=== PATIENT | female | born 1975 | race Caucasian/White ===

== ENCOUNTER 2019-11-09 11:36 | Inpatient (IN) | payer OTHER ==
[2019-11-09 12:14] LABS: Basophils # (A) 0.1 k/uL (0-0.2); Basophils % (A) 2 %; Eosinophils # (A) 0.1 k/uL (0-0.7); Eosinophils % (A) 1 %; HCT 43.3 % (34.0-46.0); HGB 14.2 gm/dL (11.4-16.0); Lymphocytes % (A) 17 %; MCH 28.5 pg (25.0-35.0); MCHC 32.7 g/dL (31.0-37.0); MCV 87.2 fL (80.0-100.0); Mean Platelet Volume 6.9; Monocytes # (A) 0.4 k/uL (0-1.0); Monocytes % (A) 8 %; Neutrophils % (A) 71 %; Platelet Count 264 k/uL (150-450); RBC 4.97 m/uL (3.80-5.40); RDW 13.2 % (11.5-15.5); WBC 5.6 k/uL (3.8-10.6)
[2019-11-09] MEDS ORDERED: NITROGLYCERIN SL TABS 0.4 MG TAB SUBLINGUAL STA (12:15)
[2019-11-09] MEDS ORDERED: ASPIRIN 81 MG PO STA (12:20)
[2019-11-09 12:23] LABS: ALT 13 U/L (4-34); AST 21 U/L (14-36); African American GFR (CKD) >90 (>60 ml/min/1.73 sqM); Albumin 4.2 g/dL (3.5-5.0); Alkaline Phosphatase 54 U/L (38-126); Anion Gap 6 mmol/L; Blood Urea Nitrogen 11 mg/dL (7-17); Calcium 9.3 mg/dL (8.4-10.2); Carbon Dioxide 29 mmol/L (22-30); Chloride 103 mmol/L (98-107); Glucose 86 mg/dL (74-99); Non-African American GFR(CKD) >90 (>60 ml/min/1.73 sqM); Potassium 4.1 mmol/L (3.5-5.1); Sodium 138 mmol/L (137-145); Total Bilirubin 0.4 mg/dL (0.2-1.3); Total Protein 6.9 g/dL (6.3-8.2)
--- NOTE | 2019-11-09 12:29 | ED ---
Chest Pain HPI <Mark Miranda - Last Filed: 11/09/19 13:23> - General Source: patient Mode of arrival: wheelchair Limitations: no limitations <Katelyn Lozano - Last Filed: 11/09/19 16:36> - General Chief Complaint: Chest Pain Stated Complaint: chest pain Time Seen by Provider: 11/09/19 12:15 - History of Present Illness Initial Comments: 44-year-old female who denies smoking history diabetes high blood pressure high cholesterol she states she does have history of CAD with the family. 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 Patient denies any ripping or tearing chest pain sharp chest pain or pain with deep inspiration. Denies shortness of breath admits to diaphoresis. Patient denies any leg swelling fever or flulike symptoms. Patient denies any nausea or vomiting. Patient denies history of clotting disorders, leg swelling hemoptysis recent travel recent surgeries active cancer. Upon arrival patient appears diaphoretic. (Katelyn Lozano) - Related Data Home Medications Medication Instructions Recorded Confirmed Sertraline [Zoloft] 100 mg PO DAILY 05/19/16 11/09/19 Fluticasone Nasal [place] [Flonase 1 spray EA NOSTRIL BID PRN 09/16/16 11/09/19 Nasal [place]] ARIPiprazole [Abilify] 10 mg PO HS 11/09/19 11/09/19 Albuterol Inhaler [Ventolin Hfa 1 - 2 puff INHALATION RT-Q6H PRN 11/09/19 11/09/19 Inhaler] Levothyroxine Sodium [Synthroid] 50 mcg PO DAILY 11/09/19 11/09/19 buPROPion HCL [Wellbutrin XL] 300 mg PO DAILY 11/09/19 11/09/19 buPROPion [Wellbutrin] 75 mg PO DAILY@1200 11/09/19 11/09/19 traZODone HCL 50 mg PO HS 11/09/19 11/09/19 Allergies Allergy/AdvReac Type Severity Reaction Status Date / Time aspirin Allergy Unknown Verified 11/09/19 14:23 Childhood promethazine HCl Allergy Unknown Verified 11/09/19 14:23 [From Phenergan] Childhood tramadol Allergy Unknown Verified 11/09/19 14:23 Review of Systems ROS Other: All systems not noted in ROS Statement are negative. <Mark Miranda - Last Filed: 11/09/19 13:23> ROS Other: All systems not noted in ROS Statement are negative. <Katelyn Lozano - Last Filed: 11/09/19 16:36> ROS Statement: Those systems with pertinent positive or pertinent negative responses have been documented in the HPI. EKG Findings - EKG Comments: EKG Findings:: Ventricular rate 76 bpm, ME interval 156 ms, QRS laceration 80 ms, QT/QTc is 4/[address] elevation or depression nonspecific T-wave. EKG 1234. Ventricular rate 70 bpm, ME interval 152 ms, QRS duration 86 ms, QT/QTC 396/451 ms. This is normal sinus, no st elevation or depression. EKG 1154 <Katelyn Lozano - Last Filed: 11/09/19 16:36> Past Medical History Past Medical History: Asthma, GERD/Reflux Additional Past Medical History / Comment(s): constipation, abd pain, spinal stenosis, sciatica, History of Any Multi-Drug Resistant Organisms: None Reported Additional Past Surgical History / Comment(s): laproscopy for molar Past Anesthesia/Blood Transfusion Reactions: No Reported Reaction Past Psychological History: Depression Smoking Status: Former smoker Past Alcohol Use History: None Reported Past Drug Use History: None Reported <Katelyn Lozano - Last Filed: 11/09/19 16:36> General Exam Limitations: no limitations <Katelyn Lozano - Last Filed: 11/09/19 16:36> Course <Mark Miranda - Last Filed: 11/09/19 13:23> Vital Signs 11/09/19 11/09/19 11/09/19 11:45 12:36 12:50 Temperature 97.5 F L Pulse Rate 93 84 80 Respiratory 16 19 19 Rate Blood Pressure 139/78 121/79 118/81 O2 Sat by Pulse 99 100 99 Oximetry 11/09/19 11/09/19 11/09/19 13:41 14:46 16:15 Temperature 98.3 F Pulse Rate 84 81 77 Respiratory 19 18 18 Rate Blood Pressure 112/83 121/87 131/77 O2 Sat by Pulse 100 99 99 Oximetry - Reevaluation(s) Reevaluation #1: 11/09/19 13:23 Patient 34 presenting with chest pain, found to have elevated troponin. Case is discussed with the admitting physician Dr. Hatfield as well as the fast food worker Dr. Nelson. Patient chest pain-free at the time my evaluation. She is initiated on heparin, nitroglycerin, given aspirin emergency department. (Mark Miranda) Chest Pain MDM <Katelyn Lozano - Last Filed: 11/09/19 16:36> - MDM 44yo female presented for chest pain. 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 Denies any other forms of allergic reaction to Aspirin. Patient was provided 324mg chewable after evaluation. Troponin returned elevated. There is no ST elevation or depression. Concern for an STEMI. Time are within normal limits. Chest x- rayin. Patient's blood pressure vital signs remained stable in the emergency department. At this time will admit patient for cardiac catheterization and further evaluation by cardiology. Patient is agreeable to this Plan and admission as well as anticoagulation therapy patient was started on the intensity heparin after patient was evaluated by attending provider Dr. Miranda was agreeable to care plan at this time. 35 minutes of critical care were spent with patient including reevaluation, speaking with admitting providers, discussing updates, repeat EKG interpretations. (Katelyn Lozano) Disposition <Mark Miranda - Last Filed: 11/09/19 13:23> Is patient prescribed a controlled substance at d/c from ED?: No Time of Disposition: 14:02 Decision to Admit Reason: Admit from EC Decision Date: 11/09/19 Decision Time: 14:02 <Katelyn Lozano - Last Filed: 11/09/19 16:36> Clinical Impression: NSTEMI (non-ST elevated myocardial infarction), Chest pressure Disposition: ADMITTED IP TO THIS HOSP Condition: Serious
[2019-11-09 12:34] LABS: INR 0.9 (<1.2); Partial Thromboplastin Time 22.9 sec (22.0-30.0); Prothrombin Time 9.6 sec (9.0-12.0)
--- NOTE | 2019-11-09 12:51 | XR ---
EXAMINATION TYPE: XR chest 2V DATE OF EXAM: 11/09/2019 COMPARISON: NONE TECHNIQUE: PA and lateral views submitted. HISTORY: Pain FINDINGS: The lungs are clear and there is no pneumothorax, pleural effusion, or focal pneumonia. Mild hyperi nflation. No overt failure. IMPRESSION: 1. No acute process. Mild hyperinflation correlate for asthma or COPD.
[2019-11-09] MEDS ORDERED: NITROGLYCERIN OINT 1 INCH/GM PACKET TOPICAL STA (13:06)
[2019-11-09] MEDS ORDERED: HEPARIN SODIUM,PORCINE 5,000 UNIT/ML 1 ML VIAL IV PRN (13:07)
[2019-11-09] MEDS ORDERED: HEPARIN SODIUM,PORCINE 5,000 UNIT/ML 1 ML VIAL IV ONE (13:07)
[2019-11-09] MEDS ORDERED: HEPARIN SOD,PORK IN 0.45% NACL 25,000 UNIT in 0.45% NACL 1 250ML.BAG IV SCH (13:15)
[2019-11-09] MEDS ORDERED: NITROGLYCERIN SL TABS 0.4 MG TAB SUBLINGUAL PRN (13:58)
[2019-11-09 17:47] LABS: Cholesterol 267 mg/dL (<200); HDL Cholesterol 62 mg/dL (40-60); LDL Cholesterol,Calculated 172 mg/dL (0-99); Triglycerides 164 mg/dL (<150)
[2019-11-09 19:25] LABS: INR 0.9 (<1.2); Partial Thromboplastin Time 58.7 sec (22.0-30.0); Prothrombin Time 9.7 sec (9.0-12.0)
[2019-11-09] MEDS: METOPROLOL SUCCINATE (ER) 25 MG TAB.ER.24H PO SCH (21:01)
--- NOTE | 2019-11-09 21:58 | CONS ---
CONSULTATION CHIEF COMPLAINT: Chest pain. Akanksha is a 44-year-old lady with no significant past medical history who presented to hospital complaining of chest pain. She describes it as a precordial chest discomfort that radiated to her jaw. It is mild to moderate intensity at rest, and her first set of troponin had come back elevated. At the time of my evaluation she appears comfortable at rest. EKG did not reveal ischemic changes. Her clinical presentation is consistent with acute cyr-AX-scdbbdw-elevation NC. The patient has a history of dyslipidemia. On this admission the TSH is high, free T4 is low. This needs further evaluation and treatment. PAST MEDICAL HISTORY: Negative for hypertension, diabetes. MEDICATIONS: Medications at home include Ventolin, Abilify, Synthroid, Zoloft, Wellbutrin and trazodone. ALLERGIES: PHENERGAN, TRAMADOL AND ASPIRIN. FAMILY HISTORY: Negative for premature coronary artery disease. SOCIAL HISTORY: Negative for current smoking, EtOH abuse or drug abuse. REVIEW OF SYSTEMS: HEENT is unremarkable. CARDIAC: As described above. RESPIRATORY: Negative. GI: Negative. GENITOURINARY: Negative. ALLERGY: Negative. IMMUNOLOGY: Negative. SKIN: Negative. MUSCULOSKELETAL: Negative. ENDOCRINE: Negative. DERMATOLOGY: Negative. CONSTITUTIONAL: Negative. ONCOLOGICAL: Negative. CRUSHER SUPERVISOR: Negative. Rest of the system review is not relevant. PHYSICAL EXAMINATION: Heart rate is 77 beats per minute. Blood pressure is 130/77, respiratory rate is 18. Oxygen saturation is 99% on 2 L. There is no jugular venous distention. Carotid upstroke is normal. There is no bruit. Chest exam reveals good air entry bilaterally. Heart exam reveals first and second heart sounds. No gallop. No murmur. No rub. Abdomen is soft, nontender. Examination of extremities did not reveal any edema. Peripheral pulses are felt. EKG shows sinus rhythm without significant ST-T wave changes. ASSESSMENT: Acute zpo-HP-myiexqj-elevation myocardial infarction. PLAN: Patient is free of symptoms at the moment. Patient is pain-free. She is on IV heparin, nitroglycerin paste, aspirin. I am going to start her on beta blockers and schedule her for a catheterization tomorrow morning. MMODL / IJN: [id number] /
[2019-11-09] MEDS ORDERED: NITROGLYCERIN-D5W PMX 50 MG in DEXTROSE/WATER 1 250ML.BAG IV SCH (22:00)
[2019-11-09] MEDS ORDERED: HYDROmorphone 0.5 MG/0.5 ML SYRINGE IVP STA (22:52)
[2019-11-10] MEDS: ACETAMINOPHEN TAB 325 MG TAB PO PRN ×2 (00:52→14:30)
[2019-11-10 01:18] LABS: Basophils % (A) 1 %; Eosinophils # (A) 0.1 k/uL (0-0.7); Eosinophils % (A) 1 %; HCT 37.4 % (34.0-46.0); HGB 12.4 gm/dL (11.4-16.0); Lymphocytes # (A) 1.7 k/uL (1.0-4.8); Lymphocytes % (A) 37 %; MCH 28.8 pg (25.0-35.0); MCHC 33.1 g/dL (31.0-37.0); Monocytes # (A) 0.4 k/uL (0-1.0); Monocytes % (A) 9 %; Neutrophils # (A) 2.3 k/uL (1.3-7.7); Neutrophils % (A) 49 %; Platelet Count 264 k/uL (150-450); RDW 13.2 % (11.5-15.5); WBC 4.6 k/uL (3.8-10.6)
[2019-11-10 06:29] LABS: Basophils % (A) 0 %; Eosinophils # (A) 0.1 k/uL (0-0.7); Eosinophils % (A) 2 %; HCT 36.9 % (34.0-46.0); HGB 12.3 gm/dL (11.4-16.0); Lymphocytes # (A) 1.6 k/uL (1.0-4.8); Lymphocytes % (A) 33 %; MCH 29.1 pg (25.0-35.0); MCHC 33.3 g/dL (31.0-37.0); MCV 87.2 fL (80.0-100.0); Mean Platelet Volume 7.1; Monocytes # (A) 0.5 k/uL (0-1.0); Monocytes % (A) 9 %; Neutrophils # (A) 2.5 k/uL (1.3-7.7); Neutrophils % (A) 53 %; Platelet Count 260 k/uL (150-450); RBC 4.23 m/uL (3.80-5.40); RDW 13.1 % (11.5-15.5); WBC 4.8 k/uL (3.8-10.6)
[2019-11-10 07:04] LABS: Cholesterol 234 mg/dL (<200); HDL Cholesterol 57 mg/dL (40-60); LDL Cholesterol,Calculated 153 mg/dL (0-99); Triglycerides 121 mg/dL (<150)
[2019-11-10] MEDS ORDERED: ASPIRIN 325 MG TAB PO STA (07:23)
[2019-11-10] MEDS ORDERED: NITROGLYCERIN SL TABS 0.4 MG TAB SUBLINGUAL PRN ×2 (07:23→10:50)
[2019-11-10] MEDS ORDERED: ALPRAZolam 0.25 MG TAB PO PRN (07:23)
[2019-11-10] MEDS ORDERED: ATORVASTATIN 80 MG TAB PO STA (07:23)
[2019-11-10] MEDS ORDERED: ALPRAZolam 0.5 MG TAB PO PRN (07:23)
[2019-11-10] MEDS ORDERED: SODIUM CHLORIDE 0.9% 1,000 ML in EMPTY BAG 1 BAG IV ONE (07:23)
--- NOTE | 2019-11-10 07:48 | PN ---
PROGRESS NOTE Akanksha is a.m. 44-year-old lady who came into hospital with chest pain and ruled in for myocardial infarction. Her first set of troponin was elevated at 0.045 seconds. The second set came back as 2.1 and third set as 2.4. Her LDL cholesterol is 172. The total cholesterol is 267. Patient is currently on IV heparin, nitroglycerin paste and is symptom-free. PHYSICAL EXAM: Comfortable at rest. Vital signs are stable. Chest exam reveals good air entry bilaterally. Heart exam reveals first and second heart sounds. No gallop. No murmur. No rub. Abdomen is soft, nontender. Exam of extremities did not reveal any edema. Peripheral pulses are felt. LABS: Show a hemoglobin of 12.3, platelet count is 260. Creatinine is 0.76. Troponins are elevated. ASSESSMENT: Acute non ST-segment elevation myocardial infarction. PLAN: Patient will undergo cardiac catheterization with a view to performing angioplasty this morning. She had been explained of risks, benefits. MMODL / IJN: [id number] /
[2019-11-10] MEDS: METOPROLOL SUCCINATE (ER) 25 MG TAB.ER.24H PO SCH (08:07)
[2019-11-10] MEDS ORDERED: FUROSEMIDE 10 MG/ML 2 ML VIAL IV STA (08:10)
[2019-11-10] MEDS ORDERED: LIDOCAINE 1% INJ 10MG/ML (20 ML MDV) ONE ×2 (08:43→10:28)
[2019-11-10] MEDS ORDERED: fentaNYL (PF) 50 MCG/ML 2 ML AMP ONE (08:44)
[2019-11-10] MEDS ORDERED: MIDAZOLAM 2 MG/2 ML VIAL IV ONE (08:50)
[2019-11-10] MEDS ORDERED: LIDOCAINE 1% INJ 10MG/ML (20 ML MDV) SQ ONE (08:53)
[2019-11-10] MEDS ORDERED: fentaNYL (PF) 50 MCG/ML 2 ML AMP IV ONE (08:53)
[2019-11-10] MEDS ORDERED: IV FLUID CONTINUATION 800 ML IV ONE (08:55)
[2019-11-10] MEDS ORDERED: ASPIRIN 325 MG TAB PO SCH (09:00)
[2019-11-10] MEDS ORDERED: BIVALIRUDIN 250 MG in SODIUM CHLORIDE 0.9% 38 ML IV ONE ×4 (09:29)
[2019-11-10] MEDS ORDERED: BIVALIRUDIN BOLUS 250 MG/50 ML IV ONE ×2 (09:29→09:38)
--- NOTE | 2019-11-10 09:45 | CC ---
CARDIAC CATHETERIZATION REPORT INDICATION: Acute non ST-segment elevation PA. PROCEDURE NOTE: After obtaining informed consent, left heart catheterization and coronary angiogram were performed via the right femoral artery using standard Manisha catheters. Patient tolerated the procedure well without any obvious immediate complications. Patient received moderate conscious sedation. Total sedation time was 19 minutes. FINDINGS: 1. HEMODYNAMICS: Left ventricular end-diastolic pressure is 18 mm. There is no significant gradient across the aortic valve. 2. LEFT VENTRICULOGRAM: Left ventriculogram is not performed. 3. ANGIOGRAPHIC DATA: LEFT MAIN CORONARY ARTERY: Left main coronary artery is a normal-sized vessel and is free of stenosis. It divides into left anterior descending coronary artery and circumflex coronary artery. LAD and its branches, circumflex coronary artery and its branches are free of significant stenosis. Right coronary artery is a large dominant vessel and there is an 80%-90% focal stenosis involving the PDA. CONCLUSION: Single-vessel coronary artery disease as described above. PLAN: I am going to have Dr. BINA Mac the on-call [facility] technical lead senior developer review the angiogram and advise on angioplasty of the PDA. MMODL / IJN: [id number] /
--- NOTE | 2019-11-10 09:45 | LTR ---
DATE OF SERVICE: 11/10/2019 RE: Akanksha Carey Dear Dr. Frias; I performed cardiac catheterization on Akanksha Carey, a detailed catheterization note has been forwarded for your records. In brief, this pleasant 44-year-old lady with dyslipidemia for coronary risk factor, presented to [facility] with chest pain. She ruled in for myocardial infarction with a peak troponin of about 2.4 and underwent cardiac catheterization this morning that revealed an 80% to 90% stenosis involving the PDA. We will proceed with angioplasty with stent placement of the same and if everything goes well, patient should be able to go home on Thursday morning and follow up with us in the office in a week's time. Thank you for giving us the privilege of participating in the care of this pleasant lady. Sincerely, Omar Hayes MD MMODL / JOSE CARLOS: [id number] /
[2019-11-10] MEDS ORDERED: IOPAMIDOL-370 125ML BTL INJ ONE (10:09)
[2019-11-10] MEDS ORDERED: NITROGLYCERIN 1000MCG/10ML SYRINGE INTRACORON ONE (10:13)
[2019-11-10] MEDS ORDERED: CLOPIDOGREL 75 MG TAB ONE (10:17)
[2019-11-10] MEDS ORDERED: niCARdipine Syringe (1,000 mcg/10 mL) INTRACORON ONE (10:22)
[2019-11-10] MEDS ORDERED: CLOPIDOGREL 75 MG TAB PO ONE (10:22)
[2019-11-10] MEDS ORDERED: IOPAMIDOL-370 50ML BTL INJ ONE (10:23)
[2019-11-10] MEDS ORDERED: HYDROmorphone 1 MG/ML 1 ML SYRINGE ONE (10:28)
[2019-11-10] MEDS ORDERED: HYDROmorphone 1 MG/ML 1 ML SYRINGE IVP ONE (10:30)
[2019-11-10] MEDS ORDERED: ZOLPIDEM 5 MG TAB PO PRN (10:50)
[2019-11-10] MEDS ORDERED: MAG HYDROX/AL HYDROX/SIMETH 30 ML CUP PO PRN (10:50)
[2019-11-10] MEDS ORDERED: RX INFO: IV CONTRAST WAS GIVEN 1 EACH MISC MISCELLANE PRN (10:50)
[2019-11-10] MEDS ORDERED: ATROPINE SULFATE 0.1 MG/ML 10ML SYRINGE IV PRN (10:50)
[2019-11-10] MEDS ORDERED: SODIUM CHLORIDE 0.9% 1,000 ML IV SCH (11:00)
--- NOTE | 2019-11-10 11:08 | PTCA ---
PERCUTANEOUSTRANS CORORONARY ANGIOGRAPHY DATE OF SERVICE: 11/10/2019 PROCEDURE: PTCA and stenting of PDA branch of the dominant RCA with 2 drug-eluting stents. PERFORMED BY: Dr. Norma Mac. Moderate conscious sedation time was 66 minutes. Patient was administered Versed, Dilaudid. Oxygen saturation, hemodynamics and EKG were monitored closely. CLINICAL INFORMATION: Mrs. Akanksha Carey is a 44-year-old lady without significant past medical history, who came into the hospital with chest discomfort, had equivocal EKG changes and troponin elevation and persistent chest pain requiring some IV nitroglycerin. She was seen and evaluated by Dr. Nelosn who performed the cardiac cath from right femoral approach. 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 This was a 2.0 mm vessel. There was a fair amount of myocardium being supplied by it. Because of ongoing chest pain and requiring IV nitroglycerin, I recommended PCI of the vessel. She had no other significant disease in other vessels. PROCEDURE NOTE: The existing 6-Bahamian introducer in the right femoral artery was used to perform the procedure. I used a standard right Manisha guide catheter to cannulate the right coronary artery. Angiomax bolus and infusion was given and 600 mg of Plavix was given orally. I used initially a run-through wire but I was unable to cross the lesion. I then used a combination of a FineCross straight catheter and run-through wire. With this, also I had difficulty. I switched over to a Whisper wire. With this, I was able to cross the lesion wire was kept distally. FineCross was exchanged over the long whisper wire. Predilatation was performed with a 2.0 caliber 15 mm Trek balloon. I then deployed 18 mm long 2.0 caliber Esequiel stent distally and another 8 mm 2.0 caliber [place]vue stent proximally. Excellent angiographic result was achieved. There were no complications. The sheath was then taken out and a Perclose device used to secure hemostasis. The patient was sent to the room in a stable condition. Details were discussed with the patient and her family members. I expect she will be discharged home in the next 24 to 48 hours. MMODL / IJN: [id number] / GRACIELA
[2019-11-10 13:20] VITALS: BMI 27.3
[2019-11-10] MEDS ORDERED: ALBUTEROL NEBULIZED 2.5 MG/3 ML INHALATION PRN (14:19)
[2019-11-10] MEDS ORDERED: FLUTICASONE 50MCG/SPRAY NASAL 16GM EA NOSTRIL PRN (14:19)
--- NOTE | 2019-11-10 14:22 | P.HPIM ---
History of Present Illness H&P Date: 11/10/19 Chief Complaint: chest pain This is a 44-year-old female patient of Dr. Frias with past medical history of hyperlipidemia, asthma, gastroesophageal reflux disease, spinal stenosis, migraine headaches, recurrent depression and generalized anxiety disorder, remote history of tobacco use. Patient states that she was driving back from [employer] where she works in [id number] and developed chest pressure constricting feeling in her chest that was a 10/10. There was radiation to the jaw and neck area. She came directly to the hospital. Her initial EKG did not reveal any ischemic changes. Chest x-ray showed no acute process. CBC and CMP unremarkable. Triglycerides 164, cholesterol 267, LDL 172, HDL 62. Troponin 0.045, 2.180 and 2.450. She was started on IV heparin, Nitropaste and aspirin, beta blockers and patient was scheduled for heart catheterization which occurred this morning. Heart catheterization done this morning by Dr. Nelson reveals 80- 90% focal stenosis involving the PDA. Patient's is currently underwent percutaneous coronary angiography and 2 drug-eluting stent placement with Dr. BINA Mac. Patient is now seen on the cardiac stepdown unit. She states she has very little constricting feeling in her chest. No shortness of breath. Review of Systems Constitutional: Denies chills, Denies fatigue, Denies fever, Denies lethargy, Denies malaise, Denies poor appetite, Denies weakness, Denies weight loss Eyes: denies blurred vision, denies pain Ears, nose, mouth and throat: Denies dysphagia, Denies headache, Denies nasal congestion, Denies nasal discharge, Denies sore throat, Denies vertigo Cardiovascular: Reports chest pain, Reports edema, Denies decreased exercise tolerance, Denies dyspnea on exertion, Denies leg edema, Denies lightheadedness, Denies shortness of breath, Denies syncope Respiratory: Denies cough, Denies cough with sputum, Denies dyspnea, Denies excessive sputum, Denies hemoptysis, Denies home oxygen, Denies wheezing Gastrointestinal: Denies abdominal pain, Denies diarrhea, Denies loss of appetite, Denies nausea, Denies vomiting Genitourinary: Denies dysuria, Denies hematuria, Denies urgency, Denies urinary frequency Musculoskeletal: Denies frequent falls, Denies gait dysfunction, Denies muscle weakness, Denies myalgias Integumentary: Denies pruritus, Denies rash Neurological: Denies change in mentation, Denies change in speech, Denies numbn ess, Denies weakness Psychiatric: Denies anxiety, Denies depression Endocrine: Denies fatigue, Denies weight change Past Medical History Past Medical History: Asthma, GERD/Reflux Additional Past Medical History / Comment(s): constipation, abd pain, spinal stenosis, sciatica, migraines History of Any Multi-Drug Resistant Organisms: None Reported Additional Past Surgical History / Comment(s): laproscopy for molar Past Anesthesia/Blood Transfusion Reactions: No Reported Reaction Past Psychological History: Depression Smoking Status: Former smoker Past Alcohol Use History: None Reported Additional Past Alcohol Use History / Comment(s): 1 pack per day for 24 years and quit in 2010. Past Drug Use History: None Reported - Past Family History Mother Family Medical History: Cancer Additional Family Medical History / Comment(s): Mother has history of breast cancer. Father Additional Family Medical History / Comment(s): Patient does not know her father's history. Sister(s) Additional Family Medical History / Comment(s): Patient has 1 sister with no major medical problems. Patient is on IV pressors. Patient has 2 daughters one half endometriosis and mental health issues. Medications and Allergies Home Medications Medication Instructions Recorded Confirmed Type Sertraline [Zoloft] 100 mg PO DAILY 05/19/16 11/09/19 History Fluticasone Nasal [place] [Flonase 1 spray EA NOSTRIL BID PRN 09/16/16 11/09/19 History Nasal [place]] ARIPiprazole [Abilify] 10 mg PO 11/09/19 11/09/19 History Albuterol Inhaler [Ventolin Hfa 1 - 2 puff INHALATION RT-Q6H PRN 11/09/1909/16 History Inhaler] Levothyroxine Sodium [Synthroid] 50 mcg PO DAILY 11/09/19 11/09/19 History buPROPion HCL [Wellbutrin XL] 300 mg PO DAILY 11/09/19 11/09/19 History buPROPion [Wellbutrin] 75 mg PO DAILY@1200 11/09/19 11/09/19 History traZODone HCL 50 mg PO 11/09/19 11/09/19 History Allergies Allergy/AdvReac Type Severity Reaction Status Date / Time aspirin Allergy Unknown Verified 11/09/19 14:23 Childhood promethazine HCl Allergy Unknown Verified 11/09/19 14:23 [From Phenergan] Childhood tramadol Allergy Unknown Verified 11/09/19 14:23 Physical Exam Vitals: Vital Signs Temp Pulse Pulse Pulse Resp BP BP 11/10/19 12:17 11/10/19 12:05 78 16 107/70 11/10/19 12:00 71 12 11/10/19 11:53 98 F 12 110/72 11/10/19 11:49 98 F 12 110/72 11/10/19 11:35 71 16 110/72 11/10/19 11:20 68 16 114/76 11/10/19 11:05 67 16 116/74 11/10/19 10:50 97.7 F 68 16 113/84 11/10/19 08:03 97.8 F 73 18 99/60 11/10/19 08:00 73 18 11/10/19 07:46 97.8 F 73 18 99/60 11/10/19 04:00 98.9 F 84 18 93/60 11/10/19 03:38 16 11/10/19 00:45 98.9 F 83 16 105/63 11/09/19 23:49 97.6 F 89 16 120/68 11/09/19 23:11 89 17 124/81 11/09/19 22:43 81 18 131/71 11/09/19 22:23 78 18 127/83 11/09/19 21:00 95 18 121/95 11/09/19 19:31 17 11/09/19 19:00 97 123/77 11/09/19 18:00 71 127/76 11/09/19 16:15 77 18 131/77 11/09/19 14:46 98.3 F 81 18 121/87 11/09/19 13:41 84 19 112/83 11/09/19 13:00 87 118/81 11/09/19 12:50 80 19 118/81 Pulse Ox 11/10/19 12:17 100 11/10/19 12:05 100 11/10/19 12:00 11/10/19 11:53 11/10/19 11:49 100 11/10/19 11:35 100 11/10/19 11:20 100 11/10/19 11:05 100 11/10/19 10:50 95 11/10/19 08:03 97 11/10/19 08:00 11/10/19 07:46 97 11/10/19 04:00 96 11/10/19 03:38 11/10/19 00:45 95 11/09/19 23:49 98 11/09/19 23:11 98 11/09/19 22:43 99 11/09/19 22:23 99 11/09/19 21:00 99 11/09/19 19:31 11/09/19 19:00 100 11/09/19 18:00 100 11/09/19 16:15 99 11/09/19 14:46 99 11/09/19 13:41 100 11/09/19 13:00 99 11/09/19 12:50 99 Intake and Output 11/09/19 11/10/19 11/10/19 22:59 06:59 14:59 Intake Total 53.381 1130 Balance 53.381 1130 Intake: IV 798 Invasive Line 1 10 Intake, IV Titration 53.381 132 Amount Heparin Sod,Pork in 0.45% 52.931 132 NaCl 25,000 unit In 0.45 % NaCl 1 250ml.bag @ 12 UNITS/KG/HR 9.863 mls/hr IV .Q24H BOBBY Rx#: [id number] Nitroglycerin-D5w Pmx 50 0.45 mg In Dextrose/Water 1 250ml.bag @ Titrate IV . Q0M BOBBY Rx#:[id number] Oral 200 Other: Weight 79.4 kg Gen: This is a 44-year-old female. Patient is resting in bed appears comfortable and in no acute distress. HEENT: Head is atraumatic, normocephalic. Pupils equal, round. Sclerae is anicteric. NECK: Supple. No JVD. No lymphadenopathy. No thyromegaly. LUNGS: Clear to auscultation. No wheezes or rhonchi. No intercostal retractions. HEART: Regular rate and rhythm. No murmur. ABDOMEN: Soft. Bowel sounds are present. No masses. No tenderness. EXTREMITIES: No pedal edema. No calf tenderness. Dorsalis pedis +2 bilaterally. NEUROLOGICAL: Patient is awake, alert and oriented x3. Cranial nerves 2 through 12 are grossly intact. Results CBC & Chem 7: 11/10/19 06:04 11/09/19 12:00 Labs: Abnormal Lab Results - Last 24 Hours (Table) 11/09/19 11/09/19 11/09/19 Range/Units 12:00 12:00 19:00 APTT 58.7 H (22.0-30.0) sec Troponin I 0.045 H* (0.000-0.034) ng/mL Triglycerides 164 H (<150) mg/dL Cholesterol 267 H (<200) mg/dL LDL Cholesterol, Calc 172 H (0-99) mg/dL HDL Cholesterol 62 H (40-60) mg/dL 11/09/19 11/10/19 11/10/19 Range/Units 19:00 00:51 00:51 APTT 42.9 H (22.0-30.0) sec Troponin I 2.180 H* 2.450 H* (0.000-0.034) ng/mL Triglycerides (<150) mg/dL Cholesterol (<200) mg/dL LDL Cholesterol, Calc (0-99) mg/dL HDL Cholesterol (40-60) mg/dL 11/10/19 11/10/19 Range/Units 06:04 06:04 APTT 48.7 H (22.0-30.0) sec Troponin I (0.000-0.034) ng/mL Triglycerides (<150) mg/dL Cholesterol 234 H (<200) mg/dL LDL Cholesterol, Calc 153 H (0-99) mg/dL HDL Cholesterol (40-60) mg/dL Thrombosis Risk Factor Assmnt - Choose All That Apply Any of the Below Risk Factors Present?: Yes Each Factor Represents 1 point: Acute CT, Age 41-60 years Other Risk Factors: No Other congenital or acquired thrombophilia - If yes, enter type in comment: No Thrombosis Risk Factor Assessment Total Risk Factor Score: 2 Thrombosis Risk Factor Assessment Level: Low Risk Assessment and Plan Plan: 1. Acute non-ST elevated myocardial infarction status post heart catheterization in stent of the PDA. Continue. Aspirin 81 mg daily, Lipitor 80 mg daily, Plavix 75 mg daily, Toprol-XL 25 mg daily. 2. Hypertension. Losartan 25 mg at bedtime. 3. Hyperlipidemia. Lipitor. 4. Hypothyroidism. Continue levothyroxine 50 g daily. 5. Recurrent depression and generalized anxiety disorder. Continue Wellbutrin XL 300 mg daily, 75 mg at noon, Zoloft 100 mg daily, Abilify 10 mg at bedtime, trazodone 50 mg at bedtime. 6. Mild intermittent asthma. Continue Ventolin inhaler as needed, Flonase. 7. GI prophylaxis. Pepcid. 8. DVT prophylaxis. Early ambulation. Patient will be admitted to the hospital for a minimum of 2 night stay. Discharge plan: home Impression and plan of care have been directed as dictated by the signing physician. Jacquelyn Daniel nurse practitioner acting as scribe for signing physician.
[2019-11-10] MEDS: traZODone HCL 50 MG TAB PO SCH (21:53)
[2019-11-10] MEDS: LOSARTAN 25 MG TAB PO SCH (21:53)
[2019-11-10] MEDS: ATORVASTATIN 80 MG TAB PO SCH (21:53)
[2019-11-10] MEDS: ARIPiprazole 10 MG TAB PO SCH (21:55)
[2019-11-11] MEDS: LEVOTHYROXINE 50 MCG TAB PO SCH ×2 (05:30)
[2019-11-11 06:47] LABS: Basophils % (A) 0 %; Eosinophils # (A) 0.1 k/uL (0-0.7); Eosinophils % (A) 1 %; HCT 39.1 % (34.0-46.0); HGB 13.1 gm/dL (11.4-16.0); Lymphocytes # (A) 1.3 k/uL (1.0-4.8); Lymphocytes % (A) 21 %; MCH 29.2 pg (25.0-35.0); MCHC 33.5 g/dL (31.0-37.0); Mean Platelet Volume 6.9; Monocytes # (A) 0.5 k/uL (0-1.0); Monocytes % (A) 8 %; Neutrophils # (A) 4.2 k/uL (1.3-7.7); Neutrophils % (A) 68 %; Platelet Count 243 k/uL (150-450); RBC 4.49 m/uL (3.80-5.40); RDW 12.9 % (11.5-15.5); WBC 6.2 k/uL (3.8-10.6)
[2019-11-11 07:05] LABS: African American GFR (CKD) >90 (>60 ml/min/1.73 sqM); Anion Gap 5 mmol/L; Blood Urea Nitrogen 11 mg/dL (7-17); Calcium 8.9 mg/dL (8.4-10.2); Carbon Dioxide 29 mmol/L (22-30); Chloride 103 mmol/L (98-107); Glucose 85 mg/dL (74-99); Non-African American GFR(CKD) >90 (>60 ml/min/1.73 sqM); Potassium 4.4 mmol/L (3.5-5.1); Sodium 137 mmol/L (137-145)
[2019-11-11] MEDS: ASPIRIN 81 MG PO SCH (08:55)
[2019-11-11] MEDS: SERTRALINE 100 MG TAB PO SCH (08:55)
[2019-11-11] MEDS: CLOPIDOGREL 75 MG TAB PO SCH (08:55)
[2019-11-11] MEDS: buPROPion XL 300 MG TAB.ER.24H PO SCH (08:55)
[2019-11-11] MEDS: METOPROLOL SUCCINATE (ER) 25 MG TAB.ER.24H PO SCH (08:55)
[2019-11-11] MEDS ORDERED: ASPIRIN 325 MG TAB PO SCH (09:00)
[2019-11-11] MEDS: buPROPion 75 MG TAB PO SCH (11:03)
--- NOTE | 2019-11-11 11:55 | P.DS ---
Providers Date of admission: 11/09/19 13:16 Expected date of discharge: 11/12/19 Attending physician: Lashon Hatfield Consults: 11/09/19 13:58 Consult Physician Urgent Consulting Provider: Aleksandar Cabrera Consult Reason/Comments: NSTEMI Do you want consulting provider notified?: Yes Primary care physician: [facility] Course: This is a 44-year-old female patient of Dr. Frias with past medical history of hyperlipidemia, asthma, gastroesophageal reflux disease, spinal stenosis, migraine headaches, recurrent depression and generalized anxiety disorder, remote history of tobacco use. 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 There was radiation to the jaw and neck area. She came directly to the hospital. Her initial EKG did not reveal any ischemic changes. Chest x-ray showed no acute process. CBC and CMP unremarkable. Triglycerides 164, cholesterol 267, LDL 172, HDL 62. Troponin 0.045, 2.180 and 2.450. She was started on IV heparin, Nitropaste and aspirin, beta blockers and patient was scheduled for heart catheterization which occurred this morning. Heart catheterization done this morning by Dr. Nelson reveals 80- 90% focal stenosis involving the PDA. Patient's is currently underwent percutaneous coronary angiography and 2 drug-eluting stent placement with Dr. BINA Mac. Patient is now seen on the cardiac stepdown unit. She states she has very little constricting feeling in her chest. No shortness of breath. 11/11: Patient denies having any chest pain or shortness of breath. She has been afebrile, heart rate 95, blood pressure 99/65 to 128/94, pulse ox 95% on room air. Repeat CBC and BMP normal, creatinine 0.78. Patient apparently had chest pain during the night and cardiology would like to keep her another day for monitoring. 11/12: Discharge diagnoses: 1. Acute non-ST elevated myocardial infarction status post heart catheterization in stent of the PDA. 2. Hypertension. 3. Hyperlipidemia. 4. Hypothyroidism. 5. Recurrent depression and generalized anxiety disorder. 6. Mild intermittent asthma, stable. Discharge plan: home Impression and plan of care have been directed as dictated by the signing physician. Jacquelyn Daniel nurse practitioner acting as scribe for signing physician. Patient Condition at Discharge: Good Plan - Discharge Summary New Discharge Prescriptions: New Aspirin 81 mg PO DAILY chew Losartan [Cozaar] 25 mg PO HS #30 tab Atorvastatin [Lipitor] 80 mg PO HS #30 tab Nitroglycerin Sl Tabs [Nitrostat] 0.4 mg SUBLINGUAL Q5M PRN #25 tab PRN Reason: Chest Pain Clopidogrel [Plavix] 75 mg PO DAILY #30 tab Metoprolol Succinate (ER) [Toprol XL] 25 mg PO DAILY #30 tab.er.24h Continue Sertraline [Zoloft] 100 mg PO DAILY Fluticasone Nasal [place] [Flonase Nasal [place]] 1 spray EA NOSTRIL BID PRN PRN Reason: Allergy Symptoms traZODone HCL 50 mg PO HS buPROPion HCL [Wellbutrin XL] 300 mg PO DAILY Levothyroxine Sodium [Synthroid] 50 mcg PO DAILY buPROPion [Wellbutrin] 75 mg PO DAILY@1200 ARIPiprazole [Abilify] 10 mg PO HS Albuterol Inhaler [Ventolin Hfa Inhaler] 1 - 2 puff INHALATION RT-Q6H PRN PRN Reason: Shortness Of Breath Discharge Medication List Sertraline [Zoloft] 100 mg PO DAILY 05/19/16 [History] Fluticasone Nasal [place] [Flonase Nasal [place]] 1 spray EA NOSTRIL BID PRN 09/16/16 [History] ARIPiprazole [Abilify] 10 mg PO HS 11/09/19 [History] Albuterol Inhaler [Ventolin Hfa Inhaler] 1 - 2 puff INHALATION RT-Q6H PRN 11/09/19 [History] Levothyroxine Sodium [Synthroid] 50 mcg PO DAILY 11/09/19 [History] buPROPion HCL [Wellbutrin XL] 300 mg PO DAILY 11/09/19 [History] buPROPion [Wellbutrin] 75 mg PO DAILY@1200 11/09/19 [History] traZODone HCL 50 mg PO HS 11/09/19 [History] Aspirin 81 mg PO DAILY chew 11/11/19 [Rx] Atorvastatin [Lipitor] 80 mg PO HS #30 tab 11/11/19 [Rx] Clopidogrel [Plavix] 75 mg PO DAILY #30 tab 11/11/19 [Rx] Losartan [Cozaar] 25 mg PO HS #30 tab 02/14/20 [Rx] Metoprolol Succinate (ER) [Toprol XL] 25 mg PO DAILY #30 tab.er.24h 11/11/19 [Rx] Nitroglycerin Sl Tabs [Nitrostat] 0.4 mg SUBLINGUAL Q5M PRN #25 tab 11/11/19 [Rx] Follow up Appointment(s)/Referral(s): Garth Frias MD [Primary Care Provider] - 1 Week Freddy Nelson MD [STAFF PHYSICIAN] - 11/17/19 12:45 pm Discharge Disposition: HOME SELF-CARE
--- NOTE | 2019-11-11 12:43 | P.PN ---
Subjective Progress Note Date: 11/11/19 This is a 44-year-old female patient of Dr. Frias with past medical history of hyperlipidemia, asthma, gastroesophageal reflux disease, spinal stenosis, migraine headaches, recurrent depression and generalized anxiety disorder, remote history of tobacco use. 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 There was radiation to the jaw and neck area. She came directly to the hospital. Her initial EKG did not reveal any ischemic changes. Chest x-ray showed no acute process. CBC and CMP unremarkable. Triglycerides 164, cholesterol 267, LDL 172, HDL 62. Troponin 0.045, 2.180 and 2.450. She was started on IV heparin, Nitropaste and aspirin, beta blockers and patient was scheduled for heart catheterization which occurred this morning. Heart catheterization done this morning by Dr. Nelson reveals 80- 90% focal stenosis involving the PDA. Patient's is currently underwent percutaneous coronary angiography and 2 drug-eluting stent placement with Dr. BINA Mac. Patient is now seen on the cardiac stepdown unit. She states she has very little constricting feeling in her chest. No shortness of breath. 11/11: Patient denies having any chest pain or shortness of breath. She has been afebrile, heart rate 95, blood pressure 99/65 to 128/94, pulse ox 95% on room air. Repeat CBC and BMP normal, creatinine 0.78. Patient apparently had chest pain during the night and cardiology would like to keep her another day for monitoring. Review of Systems Constitutional: Denies chills, Denies fatigue, Denies fever, Denies lethargy, D enies malaise, Denies poor appetite, Denies weakness, Denies weight loss Eyes: denies blurred vision, denies pain Ears, nose, mouth and throat: Denies dysphagia, Denies headache, Denies nasal congestion, Denies nasal discharge, Denies sore throat, Denies vertigo Cardiovascular: Denies chest pain, denies edema, Denies decreased exercise tolerance, Denies dyspnea on exertion, Denies leg edema, Denies lightheadedness, Denies shortness of breath, Denies syncope Respiratory: Denies cough, Denies cough with sputum, Denies dyspnea, Denies excessive sputum, Denies hemoptysis, Denies home oxygen, Denies wheezing Gastrointestinal: Denies abdominal pain, Denies diarrhea, Denies loss of appetite, Denies nausea, Denies vomiting Genitourinary: Denies dysuria, Denies hematuria, Denies urgency, Denies urinary frequency Musculoskeletal: Denies frequent falls, Denies gait dysfunction, Denies muscle weakness, Denies myalgias Integumentary: Denies pruritus, Denies rash Neurological: Denies change in mentation, Denies change in speech, Denies numbness, Denies weakness Psychiatric: Denies anxiety, Denies depression Endocrine: Denies fatigue, Denies weight change Objective - Vital Signs Vital signs: Vital Signs Temp 97.7 F 11/11/19 11:36 Pulse 95 11/11/19 11:36 Resp 13 11/11/19 11:36 BP 99/65 11/11/19 11:36 Pulse Ox 95 11/11/19 11:36 Intake & Output 11/10/19 11/11/19 11/11/19 18:59 06:59 18:59 Intake Total 1490 600 Balance 1490 600 Weight 79.4 kg 78.6 kg Intake: IV 798 Invasive Line 1 10 Intake, IV Titration 132 Amount Heparin Sod,Pork in 0.45% 132 NaCl 25,000 unit In 0.45 % NaCl 1 250ml.bag @ 12 UNITS/KG/HR 9.863 mls/hr IV .Q24H BOBBY Rx#: [id number] Oral 560 600 Other: # Voids 1 3 - Exam Gen: This is a 44-year-old female. Patient is resting in bed appears comfortable and in no acute distress. Patient denies having any chest pain. HEENT: Head is atraumatic, normocephalic. Pupils equal, round. Sclerae is anicteric. NECK: Supple. No JVD. No lymphadenopathy. No thyromegaly. LUNGS: Clear to auscultation. No wheezes or rhonchi. No intercostal retractions. HEART: Regular rate and rhythm. No murmur. ABDOMEN: Soft. Bowel sounds are present. No masses. No tenderness. EXTREMITIES: No pedal edema. No calf tenderness. Dorsalis pedis +2 bilaterally. NEUROLOGICAL: Patient is awake, alert and oriented x3. Cranial nerves 2 through 12 are grossly intact. - Labs CBC & Chem 7: 11/11/19 06:18 11/11/19 06:18 Assessment and Plan Plan: 1. Acute non-ST elevated myocardial infarction status post heart catheterization in stent of the PDA. Continue. Aspirin 81 mg daily, Lipitor 80 mg daily, Plavix 75 mg daily, Toprol-XL 25 mg daily. 2. Hypertension. Losartan 25 mg at bedtime. 3. Hyperlipidemia. Lipitor. 4. Hypothyroidism. Continue levothyroxine 50 g daily. 5. Recurrent depression and generalized anxiety disorder. Continue Wellbutrin XL 300 mg daily, 75 mg at noon, Zoloft 100 mg daily, Abilify 10 mg at bedtime, trazodone 50 mg at bedtime. 6. Mild intermittent asthma. Continue Ventolin inhaler as needed, Flonase. 7. GI prophylaxis. Pepcid. 8. DVT prophylaxis. Early ambulation. Discharge plan: home in 24 hours Impression and plan of care have been directed as dictated by the signing physician. Jacquelyn Daniel nurse practitioner acting as scribe for signing physician.
--- NOTE | 2019-11-11 15:27 | P.PN ---
Subjective Progress Note Date: 11/11/19 This is a 44-year-old female who was admitted with chest pain and enzymatic evidence of a non-STEMI. Patient had a cardiac catheterization and was found have a lesion in the distal RCA involving the PDA. It appears to be possible spontaneous dissection. Had percutaneous intervention. Had mild chest tig htness yesterday but patient is doing well today. Tolerating activity. Her groin is soft without any hematoma. Patient remains stable, patient could be discharged home in the morning Objective - Vital Signs Vital signs: Vital Signs Temp 97 F L 11/11/19 15:00 Pulse 71 11/11/19 15:00 Resp 12 11/11/19 15:00 BP 107/67 11/11/19 15:00 Pulse Ox 98 11/11/19 15:00 Intake & Output 11/10/19 11/11/19 11/11/19 18:59 06:59 18:59 Intake Total 1490 850 Balance 1490 850 Weight 79.4 kg 78.6 kg Intake: IV 798 10 Invasive Line 1 10 10 Intake, IV Titration 132 Amount Heparin Sod,Pork in 0.45% 132 NaCl 25,000 unit In 0.45 % NaCl 1 250ml.bag @ 12 UNITS/KG/HR 9.863 mls/hr IV .Q24H BOBBY Rx#: [id number] Oral 560 840 Other: # Voids 1 3 - Exam GENERAL EXAM: Patient is alert and oriented and doesn't appear to be in any acute distress HEENT: Normocephalic. Normal reaction of pupils, equal size, normal range of extraocular motion. No erythema or exudates in the throat. NECK: No masses, no nuchal rigidity. CHEST: No chest wall deformity. LUNGS: Equal air entry with no crackles or wheeze. HEART: S1 and S2 normal with no audible mumurs or gallops. Regular rhythm, femorals equal on both sides.. ABDOMEN: No hepatosplenomegaly, normal bowel sounds, no guarding or rigidity. SKIN: No rashes CENTRAL NERVOUS SYSTEM: No focal deficits. EXTREMITIES: No cyanosis, clubbing or edema. RIGHT GROIN: Soft. At the site of the puncture without any hematoma - Labs CBC & Chem 7: 11/11/19 06:18 11/11/19 06:18 Assessment and Plan (1) Hypercholesterolemia Current Visit: Yes Status: Acute Code(s): E78.00 - PURE HYPERCHOLESTEROLEMIA, UNSPECIFIED SNOMED Code(s): 94069068 (2) NSTEMI (non-ST elevated myocardial infarction) Current Visit: Yes Status: Acute Code(s): I21.4 - NON-ST ELEVATION (NSTEMI) MYOCARDIAL INFARCTION SNOMED Code(s): 81663200 (3) Status post placement of stent in right coronary artery Current Visit: Yes Status: Acute Code(s): Z95.5 - PRESENCE OF CORONARY ANGIOPLASTY IMPLANT AND GRAFT SNOMED Code(s): 17750299510348 Plan: Increase activity. If critically stable, patient could be discharged home tomorrow
[2019-11-11] MEDS: ARIPiprazole 10 MG TAB PO SCH (20:10)
[2019-11-11] MEDS: traZODone HCL 50 MG TAB PO SCH (20:10)
[2019-11-11] MEDS: LOSARTAN 25 MG TAB PO SCH (20:10)
[2019-11-11] MEDS: ATORVASTATIN 80 MG TAB PO SCH (20:10)
[2019-11-12] MEDS: LEVOTHYROXINE 50 MCG TAB PO SCH ×2 (06:26→06:27)
[2019-11-12 06:35] LABS: Basophils # (A) 0.1 k/uL (0-0.2); Basophils % (A) 2 %; Eosinophils # (A) 0.1 k/uL (0-0.7); Eosinophils % (A) 1 %; HCT 40.5 % (34.0-46.0); HGB 13.4 gm/dL (11.4-16.0); Lymphocytes # (A) 1.5 k/uL (1.0-4.8); Lymphocytes % (A) 25 %; MCH 28.7 pg (25.0-35.0); MCHC 33.1 g/dL (31.0-37.0); MCV 86.6 fL (80.0-100.0); Monocytes # (A) 0.6 k/uL (0-1.0); Monocytes % (A) 9 %; Neutrophils # (A) 3.7 k/uL (1.3-7.7); Neutrophils % (A) 61 %; Platelet Count 261 k/uL (150-450); RBC 4.68 m/uL (3.80-5.40); RDW 13.1 % (11.5-15.5); WBC 6.1 k/uL (3.8-10.6)
[2019-11-12] MEDS: buPROPion XL 300 MG TAB.ER.24H PO SCH (08:00)
[2019-11-12] MEDS: CLOPIDOGREL 75 MG TAB PO SCH (08:00)
[2019-11-12] MEDS: METOPROLOL SUCCINATE (ER) 25 MG TAB.ER.24H PO SCH (08:00)
[2019-11-12] MEDS: ASPIRIN 81 MG PO SCH (08:00)
[2019-11-12] MEDS: SERTRALINE 100 MG TAB PO SCH (08:00)
[2019-11-12 10:16] VITALS: PULSE 80
[2019-11-12] MEDS: buPROPion 75 MG TAB PO SCH (12:05)
[2019-11-12 12:46] VITALS: BP 102/58; RESP 14; TEMP 98.2
--- NOTE | 2019-11-12 14:51 | P.DS ---
Providers Date of admission: 11/09/19 13:16 Attending physician: Lashon Hatfield Consults: 11/09/19 13:58 Consult Physician Urgent Consulting Provider: Aleksandar Cabrera Consult Reason/Comments: NSTEMI Do you want consulting provider notified?: Yes Primary care physician: Garth Frias [facility] Course: This is a 44-year-old female patient of Dr. Frias with past medical history of hyperlipidemia, asthma, gastroesophageal reflux disease, spinal stenosis, migraine headaches, recurrent depression and generalized anxiety disorder, remote history of tobacco use. 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 There was radiation to the jaw and neck area. She came directly to the hospital. Her initial EKG did not reveal any ischemic changes. Chest x-ray showed no acute process. CBC and CMP unremarkable. Triglycerides 164, cholesterol 267, LDL 172, HDL 62. Troponin 0. 045, 2.180 and 2.450. She was started on IV heparin, Nitropaste and aspirin, beta blockers and patient was scheduled for heart catheterization which occurred this morning. Heart catheterization done this morning by Dr. Nelson reveals 80- 90% focal stenosis involving the PDA. Patient's is currently underwent percutaneous coronary angiography and 2 drug-eluting stent placement with Dr. BINA Mac. Patient is now seen on the cardiac stepdown unit. She states she has very little constricting feeling in her chest. No shortness of breath. 11/11: Patient denies having any chest pain or shortness of breath. She has been afebrile, heart rate 95, blood pressure 99/65 to 128/94, pulse ox 95% on room air. Repeat CBC and BMP normal, creatinine 0.78. Patient apparently had chest pain during the night and cardiology would like to keep her another day for monitoring. 11/12: Patient is doing very well no further chest pain or shortness of breath after angioplasty no recurrent angina, was seen and evaluate the by cardiology and determine that she is ready for discharge today. Patient be discharged home today. Discharge diagnoses: 1. Acute non-ST elevated myocardial infarction status post heart catheterization in stent of the PDA. 2. Hypertension. 3. Hyperlipidemia. 4. Hypothyroidism. 5. Recurrent depression and generalized anxiety disorder. 6. Mild intermittent asthma, stable. Discharge plan: home Impression and plan of care have been directed as dictated by the signing physician. Jacquelyn Daniel nurse practitioner acting as scribe for signing ph ysician. Patient Condition at Discharge: Stable Plan - Discharge Summary New Discharge Prescriptions: No Action Pantoprazole Sodium [Protonix] 40 mg PO DAILY Ubidecarenone [Co Q-10] 400 mg PO DAILY Ranolazine [Ranexa] 1,000 mg PO BID Nitroglycerin Sl Tabs [Nitrostat] 0.4 mg SUBLINGUAL Q5M PRN PRN Reason: Chest Pain Fluticasone Nasal [place] [Flonase Nasal [place]] 1 spray EA NOSTRIL BID Atorvastatin [Lipitor] 80 mg PO HS #30 tab Escitalopram [Lexapro] 20 mg PO DAILY Tamsulosin [Flomax] 0.4 mg PO BID Finasteride [Proscar] 5 mg PO DAILY Clopidogrel [Plavix] 75 mg PO DAILY #30 tab Vitamin D3(Unknown Dose) 1 tab PO DAILY Multivitamins, Thera [Multivitamin (formulary)] 1 tab PO DAILY Carvedilol [Coreg] 25 mg PO AC-BID Aspirin EC [Ecotrin Low Dose] 81 mg PO DAILY Pregabalin [Lyrica] 200 mg PO BID Patient Condition at Discharge: Good Plan - Discharge Summary New Discharge Prescriptions: New Aspirin 81 mg PO DAILY chew Losartan [Cozaar] 25 mg PO HS #30 tab Atorvastatin [Lipitor] 80 mg PO HS #30 tab Nitroglycerin Sl Tabs [Nitrostat] 0.4 mg SUBLINGUAL Q5M PRN #25 tab PRN Reason: Chest Pain Clopidogrel [Plavix] 75 mg PO DAILY #30 tab Metoprolol Succinate (ER) [Toprol XL] 25 mg PO DAILY #30 tab.er.24h Continue Sertraline [Zoloft] 100 mg PO DAILY Fluticasone Nasal [place] [Flonase Nasal [place]] 1 spray EA NOSTRIL BID PRN PRN Reason: Allergy Symptoms traZODone HCL 50 mg PO HS buPROPion HCL [Wellbutrin XL] 300 mg PO DAILY Levothyroxine Sodium [Synthroid] 50 mcg PO DAILY buPROPion [Wellbutrin] 75 mg PO DAILY@1200 ARIPiprazole [Abilify] 10 mg PO HS Albuterol Inhaler [Ventolin Hfa Inhaler] 1 - 2 puff INHALATION RT-Q6H PRN PRN Reason: Shortness Of Breath Discharge Medication List Sertraline [Zoloft] 100 mg PO DAILY 05/19/16 [History] Fluticasone Nasal [place] [Flonase Nasal [place]] 1 spray EA NOSTRIL BID PRN 09/16/16 [History] ARIPiprazole [Abilify] 10 mg PO HS 11/09/19 [History] Albuterol Inhaler [Ventolin Hfa Inhaler] 1 - 2 puff INHALATION RT-Q6H PRN 11/09/19 [History] Levothyroxine Sodium [Synthroid] 50 mcg PO DAILY 11/09/19 [History] buPROPion HCL [Wellbutrin XL] 300 mg PO DAILY 11/09/19 [History] buPROPion [Wellbutrin] 75 mg PO DAILY@1200 11/09/19 [History] traZODone HCL 50 mg PO HS 11/09/19 [History] Aspirin 81 mg PO DAILY chew 11/11/19 [Rx] Atorvastatin [Lipitor] 80 mg PO HS #30 tab 11/11/19 [Rx] Clopidogrel [Plavix] 75 mg PO DAILY #30 tab 11/11/19 [Rx] Losartan [Cozaar] 25 mg PO HS #30 tab 11/11/19 [Rx] Metoprolol Succinate (ER) [Toprol XL] 25 mg PO DAILY #30 tab.er.24h 11/11/19 [ Rx] Nitroglycerin Sl Tabs [Nitrostat] 0.4 mg SUBLINGUAL Q5M PRN #25 tab 11/11/19 [Rx] Follow up Appointment(s)/Referral(s): [facility] [NON-STAFF] - (After discharge, you will follow-up with your skate maker. Once you have obtained a prescription for cardiac rehab and have completed a stress test, please call [phone] to set up an evaluation.) Garth Frias MD [Primary Care Provider] - 1 Week Freddy Nelson MD [STAFF PHYSICIAN] - 11/17/19 12:45 pm Patient Instructions/Handouts: *Surgery [facility] - After Heart Catheterization - Floor Layer Apprentice Instructions, Heart Healthy Diet (DC) Activity/Diet/Wound Care/Special Instructions: CARDIAC CATH 1. Support your puncture site by applying firm, steady pressure whenever you cough, laugh, sneeze or bear down to have a bowel movement (2-day restriction). 2. Watch for any excessive bruising, active bleeding, a firm knot forming under your skin, extreme tenderness and signs of infection (redness, swelling, fever). 3. Shower daily, do not soak puncture in a tub bath, jacuzzi, pool, edwards etc. for 1 week. This is to prevent risk of infection. 4. Drink plenty of fluids the day of and day after your procedure to flush contrast dye out of your kidneys. 5. Take all medications as directed. Never stop any new medication without your physicians OK. 6. No driving for 2 days after procedure. 7. 10- pound weight lifting restriction for 1 week. 8. Low sodium/low fat diet. 9. Activity limited until follow up appointment with your skate maker. In case of any problems, please call [facility] [place] @ [phone]. Discharge Disposition: HOME SELF-CARE
--- NOTE | 2019-11-12 14:57 | PN ---
PROGRESS NOTE Mrs Carey presented with a non-ST elevation PA, underwent stenting of PDA branch of RCA. Two drug-eluting stents were deployed. Excellent angiographic result was achieved. It appears that she may have had a coronary dissection intrinsically and may not have significant obstructive CAD of a plaque-type disease. However, she is doing well. Right groin is clean and dry with a good pulse. Vitals are stable. No JVD. S1-S2 heard normally. Lungs are clear. Abdomen and lower extremity exam unchanged. Plan is to increase activity and discharge her on dual antiplatelet therapy and statins. The patient is fully aware of the importance of dual antiplatelet therapy as well as statins and beta blockers. She will see Dr. Nelson in one week. MMODL / IJN: [id number] /
== END 2019-11-12 15:14 | disposition home or self-care (01) | DRG 247 ==
LOC: SUPCPDRO 11:36 → EC 11:36 → 3SCARD 13:16
PROVIDERS: ADMIT Family Medicine; ATTEND Family Medicine
PROC: 027035Z Dilation of Coronary Artery, One Artery with Two Drug-eluting Intraluminal Devices, Percutaneous Approach (ICD-10-PCS; principal; 2019-11-10 09:30)
PROC: B2111ZZ Fluoroscopy of Multiple Coronary Arteries using Low Osmolar Contrast (ICD-10-PCS; 2019-11-10 09:30)
PROC: 4A023N7 Measurement of Cardiac Sampling and Pressure, Left Heart, Percutaneous Approach (ICD-10-PCS; 2019-11-10 09:30)
DX: I21.4 Non-ST elevation (NSTEMI) myocardial infarction (principal); F33.9 Major depressive disorder, recurrent, unspecified; E03.9 Hypothyroidism, unspecified; E78.00 Pure hypercholesterolemia, unspecified; E78.5 Hyperlipidemia, unspecified; F41.1 Generalized anxiety disorder; I10 Essential (primary) hypertension; I25.10 Atherosclerotic heart disease of native coronary artery without angina pectoris; K21.9 Gastro-esophageal reflux disease without esophagitis; J45.20 Mild intermittent asthma, uncomplicated; Z79.02 Long term (current) use of antithrombotics/antiplatelets; Z79.82 Long term (current) use of aspirin; Z79.890 Hormone replacement therapy; Z79.899 Other long term (current) drug therapy; Z80.3 Family history of malignant neoplasm of breast; Z87.891 Personal history of nicotine dependence; Z88.6 Allergy status to analgesic agent; Z88.5 Allergy status to narcotic agent; Z88.8 Allergy status to other drugs, medicaments and biological substances
CPT/HCPCS: 36415; 71046; 80048; 80053; 80061; 83735; 84484; 85025; 85379; 85610; 85730; 93005; 93458; 96365; 96366; 96368; 96375; 96376; 99291

== ENCOUNTER 2021-02-21 08:03 | Observation (INO) | payer OTHER ==
[2021-02-21] MEDS ORDERED: NITROGLYCERIN SL TABS 0.4 MG TAB SUBLINGUAL STA (08:23)
[2021-02-21] MEDS ORDERED: SODIUM CHLORIDE 0.9% 1,000 ML IV STA (08:23)
--- NOTE | 2021-02-21 08:27 | ED ---
General Adult HPI - General Chief complaint: Back Pain/Injury Stated complaint: chest heaviness/tired Time Seen by Provider: 02/21/21 08:12 Source: patient, RN notes reviewed Mode of arrival: ambulatory Limitations: no limitations - History of Present Illness Initial comments: Patient is a pleasant 45-year-old female presenting to the emergency Department with complaints of heaviness of her chest and upper back. Onset of symptoms was a day or 2 ago. Discomfort is rated 6/10. No dyspnea, nausea, or diaphoresis. No history of similar symptoms previously. Patient does have history of previous IN around a year and a half ago. Symptoms do worsen with exertion. Symptoms do also worsen somewhat with certain position changes. No leg pain or leg swelling. No cough or fever. - Related Data Home Medications Medication Instructions Recorded Confirmed Sertraline [Zoloft] 200 mg PO DAILY 05/19/16 02/21/21 Levothyroxine Sodium [Synthroid] 50 mcg PO DAILY 11/09/19 02/21/21 buPROPion HCL [Wellbutrin XL] 300 mg PO DAILY 11/09/19 02/21/21 Albuterol Sulfate [Albuterol 1 - 2 puff INHALATION RT-Q4H PRN 02/21/21 02/21/21 Sulfate Hfa] Atorvastatin [Lipitor] 80 mg PO DAILY 02/21/21 02/21/21 Previous Rx's Medication Instructions Recorded Aspirin 81 mg PO DAILY chew 11/11/19 Clopidogrel [Plavix] 75 mg PO DAILY #30 tab 11/11/19 Losartan [Cozaar] 25 mg PO HS #30 tab 11/11/19 Metoprolol Succinate (ER) [Toprol 25 mg PO DAILY #30 tab.er.24h 11/11/19 XL] Nitroglycerin Sl Tabs [Nitrostat] 0.4 mg SUBLINGUAL Q5M PRN #25 tab 11/11/19 Allergies Allergy/AdvReac Type Severity Reaction Status Date / Time chocolate flavor Allergy Unknown Verified 02/21/21 09:37 promethazine HCl Allergy Unknown Verified 02/21/21 09:37 [From Phenergan] Childhood tomato Allergy Unknown Verified 02/21/21 09:37 tramadol Allergy Unknown Verified 02/21/21 09:37 Review of Systems ROS Statement: Those systems with pertinent positive or pertinent negative responses have been documented in the HPI. ROS Other: All systems not noted in ROS Statement are negative. Constitutional: Denies: fever Eyes: Denies: eye pain ENT: Denies: ear pain Respiratory: Denies: cough, dyspnea Cardiovascular: Reports: chest pain Endocrine: Reports: fatigue Gastrointestinal: Denies: abdominal pain Genitourinary: Denies: dysuria Musculoskeletal: Reports: as per HPI Skin: Denies: rash Neurological: Denies: weakness Past Medical History Past Medical History: Asthma, GERD/Reflux, Myocardial Infarction ([place]) Additional Past Medical History / Comment(s): constipation, abd pain, spinal stenosis, sciatica, migraines History of Any Multi-Drug Resistant Organisms: None Reported Past Surgical History: Heart Catheterization With Stent Additional Past Surgical History / Comment(s): laproscopy for molar Past Anesthesia/Blood Transfusion Reactions: No Reported Reaction Past Psychological History: Depression Smoking Status: Former smoker Past Alcohol Use History: None Reported Past Drug Use History: None Reported - Past Family History Mother Family Medical History: Cancer Additional Family Medical History / Comment(s): Mother has history of breast cancer. Father Additional Family Medical History / Comment(s): Patient does not know her father's history. Sister(s) Additional Family Medical History / Comment(s): Patient has 1 sister with no major medical problems. Patient is on IV pressors. Patient has 2 daughters one half endometriosis and mental health issues. General Exam Limitations: no limitations General appearance: alert, in no apparent distress Head exam: Present: normocephalic Eye exam: Present: normal appearance Neck exam: Present: normal inspection Respiratory exam: Present: normal lung sounds bilaterally. Absent: chest wall tenderness Cardiovascular Exam: Present: regular rate, normal rhythm, normal heart sounds Expanded Peripheral pulses: 2+: Radial (R), Radial (L), Posterior Tibialis (R), Posterior Tibialis (L) GI/Abdominal exam: Present: soft. Absent: tenderness Extremities exam: Present: normal inspection. Absent: pedal edema, calf tenderness Neurological exam: Present: alert Psychiatric exam: Present: normal affect, normal mood Skin exam: Present: normal color Course Vital Signs 02/21/21 02/21/21 02/21/21 08:05 09:00 09:30 Temperature 98.3 F Pulse Rate 77 66 69 Respiratory 18 14 14 Rate Blood Pressure 123/76 115/62 101/71 O2 Sat by Pulse 99 98 97 Oximetry EKG Findings - EKG Comments: EKG Findings:: Normal sinus rhythm with rate of 67. VA 166. QRS 84. QT 410. QTc 433. Right axis. Normal QRS. No acute ST change. Medical Decision Making - Medical Decision Making Patient reevaluated and resting comfortably in bed. Symptoms did improve with nitroglycerin. Patient updated on results and plan. Case discussed with Dr. Barry, who will admit for Dr. Frias. - Lab Data Result diagrams: 02/21/21 08:29 02/21/21 08:29 Lab Results 02/21/21 02/21/21 02/21/21 Range/Units 08:29 08:29 08:29 WBC 5.5 (3.8-10.6) k/uL RBC 4.59 (3.80-5.40) m/uL Hgb 13.6 (11.4-16.0) gm/dL Hct 39.6 (34.0-46.0) % MCV 86.4 (80.0-100.0) fL MCH 29.7 (25.0-35.0) pg MCHC 34.3 (31.0-37.0) g/dL RDW 13.3 (11.5-15.5) % Plt Count 267 (150-450) k/uL MPV 6.8 Neutrophils % 63 % Lymphocytes % 24 % Monocytes % 10 % Eosinophils % 1 % Basophils % 1 % Neutrophils # 3.5 (1.3-7.7) k/uL Lymphocytes # 1.3 (1.0-4.8) k/uL Monocytes # 0.5 (0-1.0) k/uL Eosinophils # 0.1 (0-0.7) k/uL Basophils # 0.0 (0-0.2) k/uL PT 9.8 (9.0-12.0) sec INR 0.9 (<1.2) APTT 22.5 (22.0-30.0) sec D-Dimer <0.17 (<0.60) mg/L FEU Sodium 138 (137-145) mmol/L Potassium 4.4 (3.5-5.1) mmol/L Chloride 106 (98-107) mmol/L Carbon Dioxide 26 (22-30) mmol/L Anion Gap 6 mmol/L BUN 12 (7-17) mg/dL Creatinine 0.77 (0.52-1.04) mg/dL Est GFR (CKD-EPI)AfAm >90 (>60 ml/min/1.73 sqM) Est GFR (CKD-EPI)NonAf >90 (>60 ml/min/1.73 sqM) Glucose 85 (74-99) mg/dL Calcium 9.1 (8.4-10.2) mg/dL Magnesium 1.5 L (1.6-2.3) mg/dL Total Bilirubin 0.4 (0.2-1.3) mg/dL AST 29 (14-36) U/L ALT 24 (4-34) U/L Alkaline Phosphatase 66 (38-126) U/L Troponin I (0.000-0.034) ng/mL Total Protein 6.3 (6.3-8.2) g/dL Albumin 4.0 (3.5-5.0) g/dL Amylase 86 (30-110) U/L Lipase 281 (23-300) U/L 02/21/21 Range/Units 08:29 WBC (3.8-10.6) k/uL RBC (3.80-5.40) m/uL Hgb (11.4-16.0) gm/dL Hct (34.0-46.0) % MCV (80.0-100.0) fL MCH (25.0-35.0) pg MCHC (31.0-37.0) g/dL RDW (11.5-15.5) % Plt Count (150-450) k/uL MPV Neutrophils % % Lymphocytes % % Monocytes % % Eosinophils % % Basophils % % Neutrophils # (1.3-7.7) k/uL Lymphocytes # (1.0-4.8) k/uL Monocytes # (0-1.0) k/uL Eosinophils # (0-0.7) k/uL Basophils # (0-0.2) k/uL PT (9.0-12.0) sec INR (<1.2) APTT (22.0-30.0) sec D-Dimer (<0.60) mg/L FEU Sodium (137-145) mmol/L Potassium (3.5-5.1) mmol/L Chloride (98-107) mmol/L Carbon Dioxide (22-30) mmol/L Anion Gap mmol/L BUN (7-17) mg/dL Creatinine (0.52-1.04) mg/dL Est GFR (CKD-EPI)AfAm (>60 ml/min/1.73 sqM) Est GFR (CKD-EPI)NonAf (>60 ml/min/1.73 sqM) Glucose (74-99) mg/dL Calcium (8.4-10.2) mg/dL Magnesium (1.6-2.3) mg/dL Total Bilirubin (0.2-1.3) mg/dL AST (14-36) U/L ALT (4-34) U/L Alkaline Phosphatase (38-126) U/L Troponin I <0.012 (0.000-0.034) ng/mL Total Protein (6.3-8.2) g/dL Albumin (3.5-5.0) g/dL Amylase (30-110) U/L Lipase (23-300) U/L - Radiology Data Radiology results: image reviewed (Chest x-ray does not reveal acute process) Disposition Clinical Impression: Chest pain Disposition: ADMITTED IP TO THIS HOSP Is patient prescribed a controlled substance at d/c from ED?: No Referrals: Garth Frias MD [Primary Care Provider] - 1-2 days Decision Time: 10:18
[2021-02-21 08:42] LABS: Basophils % (A) 1 %; Eosinophils # (A) 0.1 k/uL (0-0.7); Eosinophils % (A) 1 %; HCT 39.6 % (34.0-46.0); HGB 13.6 gm/dL (11.4-16.0); Lymphocytes # (A) 1.3 k/uL (1.0-4.8); Lymphocytes % (A) 24 %; MCH 29.7 pg (25.0-35.0); MCHC 34.3 g/dL (31.0-37.0); MCV 86.4 fL (80.0-100.0); Mean Platelet Volume 6.8; Monocytes # (A) 0.5 k/uL (0-1.0); Monocytes % (A) 10 %; Neutrophils # (A) 3.5 k/uL (1.3-7.7); Neutrophils % (A) 63 %; Platelet Count 267 k/uL (150-450); RBC 4.59 m/uL (3.80-5.40); RDW 13.3 % (11.5-15.5); WBC 5.5 k/uL (3.8-10.6)
[2021-02-21 08:55] LABS: ALT 24 U/L (4-34); AST 29 U/L (14-36); African American GFR (CKD) >90 (>60 ml/min/1.73 sqM); Alkaline Phosphatase 66 U/L (38-126); Amylase 86 U/L (30-110); Anion Gap 6 mmol/L; Blood Urea Nitrogen 12 mg/dL (7-17); Calcium 9.1 mg/dL (8.4-10.2); Carbon Dioxide 26 mmol/L (22-30); Chloride 106 mmol/L (98-107); D-Dimer <0.17 mg/L FEU (<0.60); Glucose 85 mg/dL (74-99); INR 0.9 (<1.2); Lipase 281 U/L (23-300); Magnesium 1.5 mg/dL (1.6-2.3); Non-African American GFR(CKD) >90 (>60 ml/min/1.73 sqM); Partial Thromboplastin Time 22.5 sec (22.0-30.0); Potassium 4.4 mmol/L (3.5-5.1); Prothrombin Time 9.8 sec (9.0-12.0); Sodium 138 mmol/L (137-145); Total Bilirubin 0.4 mg/dL (0.2-1.3); Total Protein 6.3 g/dL (6.3-8.2)
[2021-02-21] MEDS ORDERED: NITROGLYCERIN OINT 1 INCH/GM PACKET TOPICAL STA (09:02)
[2021-02-21] MEDS ORDERED: MAGNESIUM OXIDE 400 MG TAB PO STA (09:03)
--- NOTE | 2021-02-21 09:04 | XR ---
EXAMINATION TYPE: XR chest 2V DATE OF EXAM: 02/21/2021 COMPARISON: 11/09/2019 HISTORY: Chest pain TECHNIQUE: PA and lateral views submitted. FINDINGS: The lungs are clear and there is no pneumothorax, pleural effusion, or focal pneumonia. Mild hyperi nflation. Heart size is within normal limits. IMPRESSION: 1. No acute process. Mild hyperinflation correlate for asthma or COPD.
[2021-02-21] MEDS ORDERED: NITROGLYCERIN SL TABS 0.4 MG TAB SUBLINGUAL PRN ×2 (10:19→10:59)
[2021-02-21] MEDS ORDERED: ASPIRIN 81 MG PO STA (10:19)
[2021-02-21] MEDS ORDERED: ALBUTEROL NEBULIZED 2.5 MG/3 ML INHALATION PRN (10:59)
--- NOTE | 2021-02-21 11:55 | P.HPIM ---
History of Present Illness H&P Date: 02/21/21 HISTORY OF PRESENT ILLNESS This is a 45-year-old female patient of Dr. Frias (transitioning to Dr. Peter) and Dr. Ángel Nelson with past medical history of non-ST elevated myocardial infarction and stent of the PDA October 2019, hyperlipidemia, mild intermittent asthma, gastroesophageal reflux disease, spinal stenosis, migraine headaches, recurrent depression and generalized anxiety disorder, remote history of tobacco use. Patient states she developed heaviness in her chest and the upper back area and anterior chest but mostly on the left side. She denies any radiation. She states it started a week ago while she was driving. She states is not the same type of pain she had with her heart attack. She complains of fatigue and generalized malaise. She contacted the cardiology office and was unable to get an appointment for 2 weeks. She did have a stress test done in November in the office which she states was negative. [place], she decided to come in today for evaluation of her chest pain. Patient presented to [facility] emergency center with the above concerns. She was found to be afebrile, heart rate 77, blood pressure 123/76, pulse ox 99% on room air. EKG was in normal sinus rhythm with no acute ST changes at 67 bpm. CBC was unremarkable. Electrolytes and renal function normal. Blood sugar 85. Liver function tests were normal. Amylase and lipase normal troponin. Patient to be placed on the observation unit and cardiology consult, echocardiogram. Patient is seen today in the emergency center. REVIEW OF SYSTEMS Constitutional: No fever, no chills, no night sweats. No weight change. No weakness, reports fatigue denies lethargy. Reports generalized malaise. No daytime sleepiness. EENT: No headache. No blurred vision or double vision, no loss of vision. No loss of Hearing, no ringing in the ears, no dizziness. No nasal drainage or congestion. No epistaxis. No sore throat. Lungs: No shortness of breath, cough, no sputum production. No wheezing. Cardiovascular: Reports chest pain, no lower extremity edema. No palpitations. No paroxysmal nocturnal dyspnea. No orthopnea. No lightheadedness or dizziness. No syncopal episodes. Abdominal: No abdominal pain. No nausea, vomiting. No diarrhea. No constipation. No bloody or tarry stools.. No loss of appetite. Genitourinary: No dysuria, increased frequency, urgency. No urinary retention. Musculoskeletal: No myalgias. No muscle weakness, no gait dysfunction, no frequent falls. No back pain. No neck pain. Integumentary: No wounds, no lesions. No rash or pruritus. No unusual b ruising. No change in hair or nails. Neurologic: No aphasia. No facial droop. No change in mentation. No head injury. No headache. No paralysis. No paresthesia. Psychiatric: No depression. No anxiety. No mood swings. Endocrine: No abnormal blood sugars. No weight change. No excessive sweating o r thirst. No cold intolerance. SOCIAL HISTORY Patient was a smoker one pack per day for 24 years and quit in 2010. No alcohol use, marijuana use or illicit drug use. 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 She does not know her father's history. Patient has 1 sister with no major medical problems. Patient has 2 daughters and one has history of endometriosis and mental health issues. PHYSICAL EXAMINATION Gen: This is a 45-year-old female. Patient is resting on the ER stretcher and appears to be comfortable and in no acute distress. HEENT: Head is atraumatic, normocephalic. Pupils equal, round. Sclerae is anicteric. NECK: Supple. No JVD. No lymphadenopathy. No thyromegaly. LUNGS: Clear to auscultation. No wheezes or rhonchi. No intercostal retractions. HEART: Regular rate and rhythm. No murmur. ABDOMEN: Soft. Bowel sounds are present. No masses. No tenderness. EXTREMITIES: No pedal edema. No calf tenderness. Dorsalis pedis +2 bilaterally. NEUROLOGICAL: Patient is awake, alert and oriented x3. Cranial nerves 2 through 12 are grossly intact. ASSESSMENT AND PLAN 1. Chest pain. Patient be placed on the observation unit, cardiology consult, echocardiogram, repeat troponins. 2. History of non-ST elevated myocardial infarction status post heart catheterization in stent of the PDA. Continue Aspirin 81 mg daily, Lipitor 80 mg daily, Plavix 75 mg daily, Toprol-XL 25 mg daily. 3. Hypertension. Losartan 25 mg at bedtime. 3. Hyperlipidemia. Lipitor. 4. Hypothyroidism. Continue levothyroxine 50 g daily. 5. Recurrent depression and generalized anxiety disorder. Continue Wellbutrin XL 300 mg daily, Zoloft 200 mg daily. 6. Mild intermittent asthma. Continue Ventolin inhaler as needed. 7. GI prophylaxis. Pepcid. 8. DVT prophylaxis. Heparin. 9. COVID-19 testing negative. Patient has been hospitalized during a pandemic. Patient placed as observation status. DISCHARGE PLAN home Impression and plan of care have been directed as dictated by the signing physician. Jacquelyn Daniel nurse practitioner acting as scribe for signing physician. Past Medical History Past Medical History: Asthma, GERD/Reflux, Myocardial Infarction ([place]) Additional Past Medical History / Comment(s): constipation, abd pain, spinal stenosis, sciatica, migraines History of Any Multi-Drug Resistant Organisms: None Reported Past Surgical History: Heart Catheterization With Stent Additional Past Surgical History / Comment(s): laproscopy for molar Past Anesthesia/Blood Transfusion Reactions: No Reported Reaction Past Psychological History: Depression Smoking Status: Former smoker Past Alcohol Use History: None Reported Past Drug Use History: None Reported - Past Family History Mother Family Medical History: Cancer Additional Family Medical History / Comment(s): Mother has history of breast cancer. Father Additional Family Medical History / Comment(s): Patient does not know her father's history. Sister(s) Additional Family Medical History / Comment(s): Patient has 1 sister with no major medical problems. Patient is on IV pressors. Patient has 2 daughters one half endometriosis and mental health issues. Medications and Allergies Home Medications Medication Instructions Recorded Confirmed Type Sertraline [Zoloft] 200 mg PO DAILY 05/19/16 02/21/21 History Levothyroxine Sodium [Synthroid] 50 mcg PO DAILY 11/09/19 02/21/21 History buPROPion HCL [Wellbutrin XL] 300 mg PO DAILY 11/09/19 02/21/21 History Aspirin 81 mg PO DAILY chew 11/11/19 02/21/21 Rx Clopidogrel [Plavix] 75 mg PO DAILY #30 tab 11/11/19 02/21/21 Rx Losartan [Cozaar] 25 mg PO HS #30 tab 11/11/19 02/21/21 Rx Metoprolol Succinate (ER) [Toprol 25 mg PO DAILY #30 tab.er.24h 11/11/1901/27 Rx XL] Nitroglycerin Sl Tabs [Nitrostat] 0.4 mg SUBLINGUAL Q5M PRN #25 tab 11/11/19 02/21/21 Rx Albuterol Sulfate [Albuterol 1 - 2 puff INHALATION RT-Q4H PRN 02/21/21 02/21/21 History Sulfate Hfa] Atorvastatin [Lipitor] 80 mg PO DAILY 02/21/21 02/21/21 History Allergies Allergy/AdvReac Type Severity Reaction Status Date / Time chocolate flavor Allergy Unknown Verified 02/21/21 09:37 promethazine HCl Allergy Unknown Verified 02/21/21 09:37 [From Phenergan] Childhood tomato Allergy Unknown Verified 02/21/21 09:37 tramadol Allergy Unknown Verified 02/21/21 09:37 Physical Exam Vitals: Vital Signs Temp Pulse Resp BP Pulse Ox 02/21/21 09:30 69 14 101/71 97 02/21/21 09:00 66 14 115/62 98 02/21/21 08:05 98.3 F 77 18 123/76 99 Intake and Output 02/20/21 02/21/21 02/21/21 22:59 06:59 14:59 Other: Weight 74.843 kg Results CBC & Chem 7: 02/21/21 08:29 02/21/21 08:29 Labs: Abnormal Lab Results - Last 24 Hours (Table) 02/21/21 Range/Units 08:29 Magnesium 1.5 L (1.6-2.3) mg/dL
[2021-02-21] MEDS ORDERED: ACETAMINOPHEN TAB 325 MG TAB PO PRN (15:53)
[2021-02-21] MEDS: NITROGLYCERIN OINT 1 INCH/GM PACKET TOPICAL SCH ×2 (15:54→19:23)
[2021-02-21] MEDS ORDERED: BUTALB/APAP/CAFF 50-325-40MG TAB PO STA (19:30)
[2021-02-21] MEDS: HEPARIN SODIUM,PORCINE/PF 5,000 UNIT/0.5 ML SYRINGE SQ SCH (19:47)
[2021-02-21] MEDS ORDERED: LOSARTAN 25 MG TAB PO SCH (21:00)
[2021-02-22] MEDS: NITROGLYCERIN OINT 1 INCH/GM PACKET TOPICAL SCH ×2 (03:46→05:44)
[2021-02-22] MEDS ORDERED: LEVOTHYROXINE 50 MCG TAB PO SCH (06:30)
[2021-02-22 08:08] VITALS: BP 100/61; PULSE 80; RESP 17; TEMP 98.5
[2021-02-22] MEDS: HEPARIN SODIUM,PORCINE/PF 5,000 UNIT/0.5 ML SYRINGE SQ SCH (08:44)
[2021-02-22] MEDS ORDERED: SERTRALINE 100 MG TAB PO SCH (09:00)
[2021-02-22] MEDS ORDERED: ASPIRIN 81 MG PO SCH (09:00)
[2021-02-22] MEDS ORDERED: ATORVASTATIN 80 MG TAB PO SCH (09:00)
[2021-02-22] MEDS ORDERED: buPROPion XL 300 MG TAB.ER.24H PO SCH (09:00)
[2021-02-22] MEDS ORDERED: ASPIRIN 325 MG TAB PO SCH (09:00)
[2021-02-22] MEDS ORDERED: METOPROLOL SUCCINATE (ER) 25 MG TAB.ER.24H PO SCH (09:00)
[2021-02-22] MEDS ORDERED: FAMOTIDINE 20 MG TAB PO SCH (09:00)
[2021-02-22] MEDS ORDERED: CLOPIDOGREL 75 MG TAB PO SCH (09:00)
[2021-02-22] MEDS ORDERED: MAGNESIUM OXIDE 400 MG TAB PO SCH (10:45)
[2021-02-22] MEDS ORDERED: dexAMETHasone 4 MG TAB PO SCH (10:45)
[2021-02-22] MEDS ORDERED: PANTOPRAZOLE 40 MG TABLET PO SCH (10:45)
--- NOTE | 2021-02-22 11:01 | ECHOF ---
Referral Reason:LVF MEASUREMENTS -------- HEIGHT: 170.2 cm WEIGHT: 74.8 kg BP: IVSd: 0.8 cm (0.6 - 1.1) LVIDd: 4.6 cm (3.9 - 5.3) LVPWd: 0.9 cm (0.6 - 1.1) EDV(Teich): 95 ml IVSs: 1.2 cm LVIDs: 2.5 cm LVPWs: 1.4 cm %IVS Thck: 55 % ESV(Teich): 23 ml EF(Teich): 76 % %FS: 44 % SV(Teich): 72 ml RVIDd: 2.7 cm (< 3.3) LALs A4C: 3.6 cm LAAs A4C: 9.6 cm LAESV A-L A4C: 22 ml LAESV MOD A4C: 19 ml LALs A2C: 2.9 cm LAAs A2C: 8.8 cm LAESV A-L A2C: 23 ml LAESV MOD A2C: 19 ml LAESV(A-L): 25 ml LAESV Index (A-L): 13.34 ml/m Ao Diam: 2.4 cm (2.0 - 3.7) LA Diam: 2.9 cm (2.7 - 3.8) AV Cusp: 2.2 cm (1.5 - 2.6) EPSS: 0.2 cm MV E [place]: 0.80 m/s MV DecT: 229 ms MV Dec Ell[place]: 3.5 m/s MV A [place]: 0.72 m/s MV E/A Ratio: 1.11 MV PHT: 67 ms TR Vmax: 1.06 m/s TR maxP.49 mmHg RAP: 5.00 mmHg RVSP: 9.49 mmHg MV EF SLOPE: 80.60 mm/s (70 - 150) MV EXCURSION: 18.52 mm (> 18.000) FINDINGS -------- Sinus rhythm. This was a technically good study. LV size, wall thickness and systolic function are normal, with an EF greater than 55%. The left shannon tricular size is normal. The right ventricle is normal in size. Normal LA size by volume 22+/-6 ml/m2. The right atrial size is normal. The aortic valve is trileaflet, and appears structurally normal. No aortic stenosis or regurgitation. Mild mitral regurgitation is present. No regurgitation noted Right ventricular systolic pressure is normal at < 35 mmHg. There is no pulmonic regurgitation present. The aortic root size is normal. There is no pericardial effusion. CONCLUSIONS -------- 1. LV size, wall thickness and systolic function are normal, with an EF greater than 55%. 2. The left ventricular size is normal. 3. The right ventricle is normal in size. 4. Normal LA size by volume 22+/-6 ml/m2. 5. The right atrial size is normal. 6. The aortic valve is trileaflet, and appears structurally normal. No aortic stenosis or regurgitati on. 7. Mild mitral regurgitation is present. 8. No regurgitation noted 9. There is no pulmonic regurgitation present. 10. The aortic root size is normal. 11. There is no pericardial effusion. PLANER OFF BEARER: Dori Luna RDCS
--- NOTE | 2021-02-22 11:19 | P.HPCAR ---
History of Present Illness This is Dr. Miller dictating an H/P on this patient The patient was interviewed and examined IMPRESSION / ASSESSMENT: Musculoskeletal chest and scapular discomfort No evidence for acute myocardial infarction or myocardial injury Her history is not consistent with angina Known coronary artery disease status post cardiac stenting lasting PLAN: Continue cardiac medications. If in the future has stress test is normal then Plavix should be stopped since it's been a year since her stenting For now she will continue on her current medications Lipid panel on statins 2-D echo and Doppler study HPI Left scapular discomfort radiating around to the front Malaise This is completely different from her chest discomfort prior to stenting lasting This was reconfirmed several times ROS: No fever chills or rigors, no cough, phlegm or expectoration, no nausea, vomiting or diarrhea, no hematuria, dysuria, no musculoskeletal complaints, no strokes or seizures, no skin lesions. EXAMINATION: Afebrile 97.7F pulse rate in the 60s to 70s normal respirations Blood pressure 109/69 mmHg Normal heart sounds normal S1 normal S2 no murmur or gallop or rub Abdomen soft nontender Lungs are clear no rhonchi no crackles REVIEW OF LABS, ECG & MEDICAL DATA 12-lead EKG shows sinus mechanism normal TN narrow QRS, ST segments White count 5.5 hemoglobin 13.6 Normal d-dimer Normal electrolytes Normal renal function, magnesium 1.5 4 troponins are normal 2-D echo and Doppler study shows normal LV size and systolic function without s egmental wall motion normalities ejection fraction greater than 55% Physical Exam Vitals: Vital Signs Temp Pulse Pulse Resp BP BP Pulse Ox 02/22/21 08:00 80 02/22/21 07:00 98.5 F 80 17 100/61 98 02/22/21 02:00 69 02/22/21 01:12 97.7 F 69 16 109/69 98 02/21/21 19:56 75 18 02/21/21 19:31 97.9 F 64 16 113/67 100 02/21/21 15:07 98.1 F 75 18 112/66 98 02/21/21 13:30 74 12 97/69 98 02/21/21 13:00 76 12 112/69 02/21/21 12:30 73 24 111/67 98 02/21/21 12:00 71 11 L 107/57 98 02/21/21 11:30 70 14 99/84 98 Intake and Output 02/21/21 02/22/21 02/22/21 22:59 06:59 14:59 Other: Voiding Method Toilet Toilet # Voids 2 3 Weight 74.843 kg Past Medical History Past Medical History: Asthma, GERD/Reflux, Myocardial Infarction ([place]) Additional Past Medical History / Comment(s): constipation, abd pain, spinal stenosis, sciatica, migraines Last Myocardial Infarction Date:: 10/2019 History of Any Multi-Drug Resistant Organisms: None Reported Past Surgical History: Heart Catheterization With Stent Additional Past Surgical History / Comment(s): laproscopy for molar Past Anesthesia/Blood Transfusion Reactions: No Reported Reaction Date of Last Stent Placement:: 10/2019 Past Psychological History: Depression Smoking Status: Former smoker Past Alcohol Use History: None Reported Additional Past Alcohol Use History / Comment(s): 1 pack per day for 24 years and quit in 2010. Past Drug Use History: None Reported - Past Family History Mother Family Medical History: Cancer Additional Family Medical History / Comment(s): Mother has history of breast cancer. Father Additional Family Medical History / Comment(s): Patient does not know her father's history. Sister(s) Additional Family Medical History / Comment(s): Patient has 1 sister with no major medical problems. Patient is on IV pressors. Patient has 2 daughters one half endometriosis and mental health issues. Physical Examination Vital Signs Temp Pulse Pulse Resp BP BP Pulse Ox 02/22/21 08:00 80 02/22/21 07:00 98.5 F 80 17 100/61 98 02/22/21 02:00 69 02/22/21 01:12 97.7 F 69 16 109/69 98 02/21/21 19:56 75 18 02/21/21 19:31 97.9 F 64 16 113/67 100 02/21/21 15:07 98.1 F 75 18 112/66 98 02/21/21 13:30 74 12 97/69 98 02/21/21 13:00 76 12 112/69 02/21/21 12:30 73 24 111/67 98 02/21/21 12:00 71 11 L 107/57 98 02/21/21 11:30 70 14 99/84 98 Intake and Output 02/21/21 02/22/21 02/22/21 22:59 06:59 14:59 Other: Voiding Method Toilet Toilet # Voids 2 3 Weight 74.843 kg Results 02/21/21 08:29 02/21/21 08:29 Cardiac Enzymes 02/21/21 02/21/21 02/22/21 Range/Units 11:22 14:40 08:52 Troponin I <0.012 <0.012 <0.012 (0.000-0.034) ng/mL Current Medications Generic Name Dose Route Start Last Admin Trade Name Freq PRN Reason Stop Dose Admin Acetaminophen 650 mg 02/21/21 15:53 02/21/21 16:14 Acetaminophen Tab 325 Mg Tab PO 650 mg Q6HR PRN Administration Fever and/ or Pain Albuterol Sulfate 2.5 mg 02/21/21 10:59 Albuterol Nebulized 2.5 Mg/3 Ml INHALATION RT-Q4H PRN Shortness Of Breath Aspirin 81 mg 02/22/21 09:00 02/22/21 08:43 Aspirin 81 Mg PO 81 mg DAILY BOBBY Administration Atorvastatin Calcium 80 mg 02/22/21 09:00 02/22/21 08:43 Atorvastatin 80 Mg Tab PO 80 mg DAILY BOBBY Administration Bupropion HCl 300 mg 02/22/21 09:00 02/22/21 08:44 Bupropion Xl 300 Mg Tab.Er.24h PO 300 mg DAILY BOBBY Administration Clopidogrel Bisulfate 75 mg 02/22/21 09:00 02/22/21 08:44 Clopidogrel 75 Mg Tab PO 75 mg DAILY BOBBY Administration Dexamethasone 4 mg 02/22/21 10:45 Dexamethasone 4 Mg Tab PO DAILY [facility] Heparin Sodium (Porcine) 5,000 unit 02/21/21 21:00 02/22/21 08:44 Heparin Sodium,Porcine/Pf 5,000 Unit/0.5 Ml Syringe SQ Not Given Q12HR [facility] Levothyroxine Sodium 50 mcg 02/22/21 06:30 02/22/21 05:44 Levothyroxine 50 Mcg Tab PO 50 mcg DAILY@0630 BOBBY Administration Losartan Potassium 25 mg 02/21/21 21:00 02/21/21 19:47 Losartan 25 Mg Tab PO 25 mg HS BOBBY Administration Magnesium Oxide 400 mg 02/22/21 10:45 Magnesium Oxide 400 Mg Tab PO DAILY [facility] Metoprolol Succinate 25 mg 02/22/21 09:00 02/22/21 08:43 Metoprolol Succinate (Er) 25 Mg Tab.Er.24h PO 25 mg DAILY BOBBY Administration Nitroglycerin 0.4 mg 02/21/21 10:19 Nitroglycerin Sl Tabs 0.4 Mg Tab SUBLINGUAL Q5M PRN Chest Pain Nitroglycerin 1 inch 02/21/21 12:00 02/22/21 05:44 Nitroglycerin Oint 1 Inch/Gm Packet TOPICAL Not Given Q6HR [facility] Pantoprazole Sodium 40 mg 02/22/21 10:45 Pantoprazole 40 Mg Tablet PO AC-BRKFST [facility] Sertraline HCl 200 mg 02/22/21 09:00 02/22/21 08:43 Sertraline 100 Mg Tab PO 200 mg DAILY [facility]OBBY Administration Sodium Chloride 10 ml 02/21/21 21:00 02/22/21 08:45 Sodium Chloride 0.9% Flush 10 Ml Syringe IV 10 ml BID BOBBY Administration Intake and Output 02/21/21 02/22/21 02/22/21 22:59 06:59 14:59 Other: Voiding Method Toilet Toilet # Voids 2 3 Weight 74.843 kg 02/21/21 08:29 02/21/21 08:29
[2021-02-22 14:01] LABS: Chol/HDL Ratio 2.96; LDL Cholesterol,Calculated 84.2 mg/dL (0.0-131.0); VLDL Calculation 21.8 mg/dL (5.00-40.00)
[2021-02-22 21:12] LABS: Chol/HDL Ratio 2.76; LDL Cholesterol,Calculated 77.2 mg/dL (0.0-131.0); VLDL Calculation 17.8 mg/dL (5.00-40.00)
--- NOTE | 2021-02-22 21:55 | P.DS ---
Providers Date of admission: 02/21/21 10:19 Attending physician: Silvio Barry Consults: 02/21/21 10:19 Consult Physician Urgent Consulting Provider: Kulwant Miller Consult Reason/Comments: cp Do you want consulting provider notified?: Yes Primary care physician: Garth Frias [facility] Course: HISTORY OF PRESENT ILLNESS This is a 45-year-old female patient of Dr. Frias (transitioning to Dr. Peter) and Dr. Ángel Nelson with past medical history of non-ST elevated myocardial infarction and stent of the PDA October 2019, hyperlipidemia, mild intermittent asthma, gastroesophageal reflux disease, spinal stenosis, migraine headaches, recurrent depression and generalized anxiety disorder, remote history of tobacco use. Patient states she developed heaviness in her chest and the upper back area and anterior chest but mostly on the left side. She denies any radiation. She states it started a week ago while she was driving. She states is not the same type of pain she had with her heart attack. She complains of fatigue and generalized malaise. She contacted the cardiology office and was unable to get an appointment for 2 weeks. She did have a stress test done in November in the office which she states was negative. Because [place], she decided to come in today for evaluation of her chest pain. Patient presented to [facility] emergency center with the above concerns. She was found to be afebrile, heart rate 77, blood pressure 123/76, pulse ox 99% on room air. EKG was in normal sinus rhythm with no acute ST changes at 67 bpm. CBC was unremarkable. Electrolytes and renal function normal. Blood sugar 85. Liver function tests were normal. Amylase and lipase normal troponin. Patient to be placed on the observation unit and cardiology consult, echocardiogram. Patient is seen today in the emergency center. 02/22: Patient has done very well her CK and troponin came to be negative next 24 hours. Cardiology apparently done cardiac testing recently has been negative no intervention required at this point. Patient has been having worsening symptom with regurgitation of acid reflex along with mild pleurisy on the right side she is agreeable to try pantoprazole along with dexamethasone for a few days to see if it help her symptoms. Was told if her symptom are recurring chest pain and worsening shortness of breath to either return to the hospital or go see cardiology further testing can be done at the point. REVIEW OF SYSTEMS Constitutional: No fever, no chills, no night sweats. No weight change. No weakness, reports fatigue denies lethargy. Reports generalized malaise. No daytime sleepiness. EENT: No headache. No blurred vision or double vision, no loss of vision. No loss of Hearing, no ringing in the ears, no dizziness. No nasal drainage or congestion. No epistaxis. No sore throat. Lungs: No shortness of breath, cough, no sputum production. No wheezing. Cardiovascular: Reports chest pain, no lower extremity edema. No palpitations. No paroxysmal nocturnal dyspnea. No orthopnea. No lightheadedness or dizziness. No syncopal episodes. Abdominal: No abdominal pain. No nausea, vomiting. No diarrhea. No constipation. No bloody or tarry stools.. No loss of appetite. Genitourinary: No dysuria, increased frequency, urgency. No urinary retention. Musculoskeletal: No myalgias. No muscle weakness, no gait dysfunction, no frequent falls. No back pain. No neck pain. Integumentary: No wounds, no lesions. No rash or pruritus. No unusual bruis ing. No change in hair or nails. Neurologic: No aphasia. No facial droop. No change in mentation. No head injury. No headache. No paralysis. No paresthesia. Psychiatric: No depression. No anxiety. No mood swings. Endocrine: No abnormal blood sugars. No weight change. No excessive sweating or thirst. No cold intolerance. PHYSICAL EXAMINATION Gen: This is a 45-year-old female. Patient is resting on the ER stretcher and appears to be comfortable and in no acute distress. HEENT: Head is atraumatic, normocephalic. Pupils equal, round. Sclerae is anicteric. NECK: Supple. No JVD. No lymphadenopathy. No thyromegaly. LUNGS: Clear to auscultation. No wheezes or rhonchi. No intercostal retractions. HEART: Regular rate and rhythm. No murmur. ABDOMEN: Soft. Bowel sounds are present. No masses. No tenderness. EXTREMITIES: No pedal edema. No calf tenderness. Dorsalis pedis +2 bilaterally. NEUROLOGICAL: Patient is awake, alert and oriented x3. Cranial nerves 2 through 12 are grossly intact. ASSESSMENT AND PLAN 1. Chest pain. Patient be placed on the observation unit, cardiology consult, echocardiogram, repeat troponins. 2. History of non-ST elevated myocardial infarction status post heart catheterization in stent of the PDA. Continue Aspirin 81 mg daily, Lipitor 80 mg daily, Plavix 75 mg daily, Toprol-XL 25 mg daily. 3. Hypertension. Losartan 25 mg at bedtime. 3. Hyperlipidemia. Lipitor. 4. Hypothyroidism. Continue levothyroxine 50 g daily. 5. Recurrent depression and generalized anxiety disorder. Continue Wellbutrin XL 300 mg daily, Zoloft 200 mg daily. 6. Mild intermittent asthma. Continue Ventolin inhaler as needed. 7. GI prophylaxis. Pepcid. 8. DVT prophylaxis. Heparin. she has done very well CK with troponin was negative. Be added pantoprazole and dexamethasone to treated for pleurisy and severe GERD symptoms are slightly but better, patient will be seen cardiology and back to her primary care physician within a few days after discharge. Plan - Discharge Summary Discharge Rx Participant: No New Discharge Prescriptions: New dexAMETHasone ORAL [Hexadrol] 4 mg PO DAILY #7 tab Magnesium Oxide [Mag-Ox] 400 mg PO DAILY #14 tab Pantoprazole [Protonix] 40 mg PO AC-BRKFST #30 tablet. Acetaminophen Tab [Tylenol] 650 mg PO Q6HR PRN tab PRN Reason: Fever And/ Or Pain Continue Sertraline [Zoloft] 200 mg PO DAILY buPROPion HCL [Wellbutrin XL] 300 mg PO DAILY Levothyroxine Sodium [Synthroid] 50 mcg PO DAILY Aspirin 81 mg PO DAILY chew Losartan [Cozaar] 25 mg PO HS #30 tab Nitroglycerin Sl Tabs [Nitrostat] 0.4 mg SUBLINGUAL Q5M PRN #25 tab PRN Reason: Chest Pain Clopidogrel [Plavix] 75 mg PO DAILY #30 tab Metoprolol Succinate (ER) [Toprol XL] 25 mg PO DAILY #30 tab.er.24h Albuterol Sulfate [Albuterol Sulfate Hfa] 1 - 2 puff INHALATION RT-Q4H PRN PRN Reason: Shortness Of Breath Atorvastatin [Lipitor] 80 mg PO DAILY Discharge Medication List Sertraline [Zoloft] 200 mg PO DAILY 05/19/16 [History] Levothyroxine Sodium [Synthroid] 50 mcg PO DAILY 11/09/19 [History] buPROPion HCL [Wellbutrin XL] 300 mg PO DAILY 11/09/19 [History] Aspirin 81 mg PO DAILY chew 11/11/19 [Rx] Clopidogrel [Plavix] 75 mg PO DAILY #30 tab 11/11/19 [Rx] Losartan [Cozaar] 25 mg PO HS #30 tab 11/11/19 [Rx] Metoprolol Succinate (ER) [Toprol XL] 25 mg PO DAILY #30 tab.er.24h 11/11/19 [Rx] Nitroglycerin Sl Tabs [Nitrostat] 0.4 mg SUBLINGUAL Q5M PRN #25 tab 11/11/19 [Rx] Albuterol Sulfate [Albuterol Sulfate Hfa] 1 - 2 puff INHALATION RT-Q4H PRN 02/21/21 [History] Atorvastatin [Lipitor] 80 mg PO DAILY 02/21/21 [History] Acetaminophen Tab [Tylenol] 650 mg PO Q6HR PRN tab 02/22/21 [Rx] Magnesium Oxide [Mag-Ox] 400 mg PO DAILY #14 tab 02/22/21 [Rx] Pantoprazole [Protonix] 40 mg PO AC-BRKFST #30 tablet.dr 02/22/21 [Rx] dexAMETHasone ORAL [Hexadrol] 4 mg PO DAILY #7 tab 02/22/21 [Rx] Follow up Appointment(s)/Referral(s): Garth Frias MD [Primary Care Provider] - 1-2 days Freddy Nelson MD [Family Provider] - 03/12/21 1:15 pm Patient Instructions/Handouts: Angina (DC), Heart Attack (DC) Discharge Disposition: HOME SELF-CARE
== END 2021-02-22 11:31 | disposition home or self-care (01) ==
LOC: EC 08:03 → 6NMEDSUR 10:19
PROVIDERS: ADMIT Internal Medicine Geriatric Medicine; ATTEND Internal Medicine Geriatric Medicine
DX: R07.89 Other chest pain (principal); M54.9 Dorsalgia, unspecified; R53.83 Other fatigue; R53.81 Other malaise; R09.1 Pleurisy; R11.10 Vomiting, unspecified; I10 Essential (primary) hypertension; I25.2 Old myocardial infarction; Z95.5 Presence of coronary angioplasty implant and graft; E78.5 Hyperlipidemia, unspecified; J45.20 Mild intermittent asthma, uncomplicated; K21.9 Gastro-esophageal reflux disease without esophagitis; I25.10 Atherosclerotic heart disease of native coronary artery without angina pectoris; G43.909 Migraine, unspecified, not intractable, without status migrainosus; M48.00 Spinal stenosis, site unspecified; F33.9 Major depressive disorder, recurrent, unspecified; F41.1 Generalized anxiety disorder; K59.00 Constipation, unspecified; M54.30 Sciatica, unspecified side; E03.9 Hypothyroidism, unspecified; Z20.822 Contact with and (suspected) exposure to COVID-19; Z87.891 Personal history of nicotine dependence; Z79.899 Other long term (current) drug therapy; Z79.02 Long term (current) use of antithrombotics/antiplatelets; Z79.82 Long term (current) use of aspirin; Z79.890 Hormone replacement therapy; Z88.5 Allergy status to narcotic agent; Z88.8 Allergy status to other drugs, medicaments and biological substances; Z91.018 Allergy to other foods; Z80.3 Family history of malignant neoplasm of breast; Z81.8 Family history of other mental and behavioral disorders; Z84.2 Family history of other diseases of the genitourinary system
CPT/HCPCS: 96372; 93005 ×2; 99284; 36415; 93306; 85379; 80061 ×2; 80053; 82150; 83690; 83735; 84484 ×2; 85025; 85610; 85730; 87635; 71046; G0378 ×2; J1644

== ENCOUNTER 2022-02-27 00:35 | Observation (INO) | payer OTHER ==
[2022-02-27 01:13] LABS: Basophils # (A) 0.1 k/uL (0-0.2); Basophils % (A) 1 %; Eosinophils # (A) 0.1 k/uL (0-0.7); Eosinophils % (A) 1 %; HCT 42.7 % (34.0-46.0); HGB 13.7 gm/dL (11.4-16.0); Lymphocytes # (A) 1.8 k/uL (1.0-4.8); Lymphocytes % (A) 25 %; MCH 28.7 pg (25.0-35.0); MCV 89.4 fL (80.0-100.0); Mean Platelet Volume 7.1; Monocytes # (A) 0.6 k/uL (0-1.0); Monocytes % (A) 8 %; Neutrophils # (A) 4.5 k/uL (1.3-7.7); Neutrophils % (A) 63 %; Platelet Count 262 k/uL (150-450); RBC 4.77 m/uL (3.80-5.40); WBC 7.1 k/uL (3.8-10.6)
[2022-02-27 01:25] LABS: ALT 28 U/L (4-34); AST 31 U/L (14-36); African American GFR (CKD) >90 (>60 ml/min/1.73 sqM); Albumin 4.1 g/dL (3.5-5.0); Alkaline Phosphatase 73 U/L (38-126); Anion Gap 4 mmol/L; Blood Urea Nitrogen 9 mg/dL (7-17); Calcium 8.8 mg/dL (8.4-10.2); Carbon Dioxide 28 mmol/L (22-30); Chloride 106 mmol/L (98-107); Glucose 96 mg/dL (74-99); Magnesium 1.6 mg/dL (1.6-2.3); Non-African American GFR(CKD) >90 (>60 ml/min/1.73 sqM); Potassium 3.8 mmol/L (3.5-5.1); Sodium 138 mmol/L (137-145); Total Bilirubin 0.3 mg/dL (0.2-1.3); Total Protein 6.6 g/dL (6.3-8.2)
[2022-02-27 01:33] LABS: INR 0.9 (<1.2); Partial Thromboplastin Time 23.4 sec (22.0-30.0); Prothrombin Time 10.2 sec (9.0-12.0)
--- NOTE | 2022-02-27 01:50 | XR ---
EXAMINATION TYPE: XR chest 2V DATE OF EXAM: 02/27/2022 COMPARISON: 02/21/2021 HISTORY: Chest pain TECHNIQUE: FINDINGS: Heart is normal. Lungs are clear. Diaphragm is normal. Bony thorax appears intact. There is a slight thoracic dextroscoliosis. There are chest leads. IMPRESSION: No cardiopulmonary disease.. No change.
--- NOTE | 2022-02-27 02:02 | ED ---
Chest Pain HPI - General Chief Complaint: Chest Pain Stated Complaint: Chest Pain and Pressure, Pain in left arm Time Seen by Provider: 02/27/22 00:59 Source: patient Mode of arrival: ambulatory - History of Present Illness MD Complaint: chest pain Onset/Timin -: hour(s) Onset: during rest Pain Location: substernal Pain Radiation: LUE Severity: moderate Quality: other (Like heartburn and squeezing) Consistency: intermittent, now resolved Improves With: nothing Worsens With: nothing Anginal Symptoms: nausea Treatments Prior to Arrival: nitroglycerin - Related Data Home Medications Medication Instructions Recorded Confirmed Sertraline [Zoloft] 200 mg PO DAILY 05/19/16 02/27/22 Levothyroxine Sodium [Synthroid] 100 mcg PO DAILY 11/09/19 02/27/22 buPROPion HCL [Wellbutrin XL] 300 mg PO DAILY 11/09/19 02/27/22 Atorvastatin [Lipitor] 80 mg PO DAILY 02/21/21 02/27/22 Cetirizine HCl [Zyrtec] 10 mg PO DAILY 02/27/22 02/27/22 Cholecalciferol [Vitamin D3 (25 25 mcg PO DAILY 02/27/22 02/27/22 Mcg = 1000 Iu)] Folic Acid 0.4 mg PO DAILY 02/27/22 02/27/22 Losartan [Cozaar] 25 mg PO DAILY 02/27/22 02/27/22 busPIRone HCL [Buspar] 7.5 mg PO TID 02/27/22 02/27/22 Previous Rx's Medication Instructions Recorded Aspirin 81 mg PO DAILY chew 11/11/19 Clopidogrel [Plavix] 75 mg PO DAILY #30 tab 11/11/19 Metoprolol Succinate (ER) [Toprol 25 mg PO DAILY #30 tab.er.24h 11/11/19 XL] Nitroglycerin Sl Tabs [Nitrostat] 0.4 mg SUBLINGUAL Q5M PRN #25 tab 11/11/19 Allergies Allergy/AdvReac Type Severity Reaction Status Date / Time chocolate flavor Allergy Unknown Verified 02/27/22 06:31 promethazine HCl Allergy Unknown Verified 02/27/22 06:31 [From Phenergan] Childhood tomato Allergy Unknown Verified 02/27/22 06:31 tramadol Allergy Unknown Verified 02/27/22 06:31 Review of Systems ROS Statement: Those systems with pertinent positive or pertinent negative responses have been documented in the HPI. ROS Other: All systems not noted in ROS Statement are negative. Constitutional: Denies: fever, chills Respiratory: Denies: cough, dyspnea Cardiovascular: Reports: chest pain. Denies: palpitations, orthopnea Gastrointestinal: Reports: nausea. Denies: abdominal pain, vomiting Genitourinary: Denies: dysuria, hematuria Musculoskeletal: Denies: back pain Skin: Denies: rash Neurological: Denies: headache, weakness EKG Findings - EKG Results: EKG: interpreted by ADRI, sinus rhythm (Rate 70 bpm), normal axis, normal QRS, normal ST/T, no acute changes Past Medical History Past Medical History: Asthma, GERD/Reflux, Myocardial Infarction ([place]) Additional Past Medical History / Comment(s): constipation, abd pain, spinal stenosis, sciatica, migraines Last Myocardial Infarction Date:: 10/2019 History of Any Multi-Drug Resistant Organisms: None Reported Past Surgical History: Heart Catheterization With Stent Additional Past Surgical History / Comment(s): laproscopy for molar Past Anesthesia/Blood Transfusion Reactions: No Reported Reaction Date of Last Stent Placement:: 10/2019 Past Psychological History: Depression Smoking Status: Former smoker Past Alcohol Use History: None Reported Past Drug Use History: None Reported - Past Family History Mother Family Medical History: Cancer Additional Family Medical History / Comment(s): Mother has history of breast cancer. Father Additional Family Medical History / Comment(s): Patient does not know her father's history. Sister(s) Additional Family Medical History / Comment(s): Patient has 1 sister with no major medical problems. Patient is on IV pressors. Patient has 2 daughters one half endometriosis and mental health issues. Course Vital Signs 02/27/22 02/27/22 02/27/22 00:39 03:17 05:13 Temperature 98.3 F Pulse Rate 80 67 70 Respiratory 19 18 16 Rate Blood Pressure 139/77 136/83 111/69 O2 Sat by Pulse 97 97 98 Oximetry Disposition Clinical Impression: Chest pain Disposition: ADMITTED IP TO THIS HOSP Condition: Fair Is patient prescribed a controlled substance at d/c from ED?: No
[2022-02-27] MEDS ORDERED: NITROGLYCERIN SL TABS 0.4 MG TAB SUBLINGUAL PRN (03:23)
[2022-02-27] MEDS ORDERED: ACETAMINOPHEN TAB 325 MG TAB PO PRN (03:37)
[2022-02-27] MEDS ORDERED: ALBUTEROL NEBULIZED 2.5 MG/3 ML INHALATION PRN (03:37)
[2022-02-27] MEDS ORDERED: LEVOTHYROXINE 50 MCG TAB PO SCH (06:30)
[2022-02-27] MEDS ORDERED: PANTOPRAZOLE 40 MG TABLET PO SCH (07:30)
[2022-02-27] MEDS ORDERED: buPROPion XL 300 MG TAB.ER.24H PO SCH (09:00)
[2022-02-27] MEDS ORDERED: CLOPIDOGREL 75 MG TAB PO SCH (09:00)
[2022-02-27] MEDS ORDERED: MAGNESIUM OXIDE 400 MG TAB PO SCH (09:00)
[2022-02-27] MEDS ORDERED: ASPIRIN 81 MG PO SCH (09:00)
[2022-02-27] MEDS ORDERED: METOPROLOL SUCCINATE (ER) 25 MG TAB.ER.24H PO SCH (09:00)
[2022-02-27] MEDS ORDERED: ATORVASTATIN 80 MG TAB PO SCH (09:00)
[2022-02-27] MEDS ORDERED: SERTRALINE 100 MG TAB PO SCH (09:00)
--- NOTE | 2022-02-27 10:25 | P.CRDCN ---
History of Present Illness Consult date: 02/27/22 History of present illness: HISTORY OF PRESENT ILLNESS: This is a 46-year-old female with a past medical history significant for very artery disease with previous PCI to the PDA branch of the RCA in October 2019 which appeared to be spontaneous dissection according to the procedure note, depression, hypothyroidism, hypertension, and former nicotine dependence. Patient follows in the office with Dr. Nelson. We have been asked to see the patient in consultation for chest pain. Patient examined at the bedside. Patient states yesterday she was getting ready for bed when she began to have heartburn symptoms. She states it was unusual for her because she usually does not get heartburn and had not eaten anything and quite a few hours. She then began to feel a squeezing sensation. She denied any nausea or vomiting. She did report report shortness of breath. She reports the pain radiated into her neck and shoulder blade. She reports taking a nitro but it did not help with her pain. She states her pain feels similar to her previous episode where she required a stent. * EKG reveals sinus mechanism with no signs of acute ischemia * Chest xray negative for acute process. * Laboratory data: WBC 7.1. Hemoglobin 13.7. Platelet count 262. Sodium 138. Potassium 3.8. BUN 9. Creatinine 0.78. Magnesium 1.6. Troponin negative 2. * Current home cardiac medications include losartan 25 mg daily, metoprolol succinate 25 mg daily, Plavix 75 mg daily, Lipitor 80 mg daily, and aspirin 81 mg daily * Most recent echocardiogram obtained in January 2021 revealed ejection fraction greater than 55%, mild mitral regurgitation. * Cardiac catheterization history: PCI to the PDA branch of the RCA in October 2019 which appeared to be spontaneous dissection according to the procedure note REVIEW OF SYSTEMS: At the time of my exam: CONSTITUTIONAL: Denies fever or chills. HEENT: Denies blurred vision, vision changes, or eye pain. Denies hemoptysis CARDIOVASCULAR: Denies chest pain. Denies orthopnea. Denies PND. Denies palpitations RESPIRATORY: Denies shortness of breath. GASTROINTESTINAL: Denies abdominal pain. Denies nausea or vomiting. HEMATOLOGIC: Denies bleeding disorders. GENITOURINARY: Denies any blood in urine. SKIN: Denies pruitis. Denies rash. PHYSICAL EXAM: VITAL SIGNS: Reviewed. GENERAL: Well-developed in no acute distress. HEENT: Head is normocephalic. Pupils are equal, round. Sclerae anicteric. Mucous membranes of the mouth are moist. Neck supple. No JVD or thyromegaly LUNGS: Respirations even and unlabored. Lungs essentially clear to auscultation bilaterally. HEART: Regular rate and rhythm. S1 and S2 heard. ABDOMEN: Soft. Nondistended. Nontender. EXTREMITIES: Normal range of motion. No clubbing or cyanosis. Peripheral pulses intact. No lower extremity edema NEUROLOGIC: Awake and alert. Oriented x 3. ASSESSMENT: Chest pain Coronary artery disease with previous PCI of the PDA branch of the RCA, possible spontaneous dissection Hypertension Hypothyroidism Depression Former nicotine dependence PLAN: An acute coronary event has been ruled out Resume home cardiac medications Patient to undergo stress echocardiogram today to assess for ischemia Further recommendations pending patient's course Nurse practitioner note has been reviewed by physician. Signing provider agrees with the documented findings, assessment, and plan of care. Past Medical History Past Medical History: Asthma, GERD/Reflux, Myocardial Infarction ([place]) Additional Past Medical History / Comment(s): constipation, abd pain, spinal stenosis, sciatica, migraines Last Myocardial Infarction Date:: 10/2019 History of Any Multi-Drug Resistant Organisms: None Reported Past Surgical History: Heart Catheterization With Stent Additional Past Surgical History / Comment(s): laproscopy for molar Past Anesthesia/Blood Transfusion Reactions: No Reported Reaction Date of Last Stent Placement:: 10/2019 Past Psychological History: Depression Smoking Status: Former smoker Past Alcohol Use History: None Reported Additional Past Alcohol Use History / Comment(s): 1 pack per day for 24 years a nd quit in 2010. Past Drug Use History: None Reported - Past Family History Mother Family Medical History: Cancer Additional Family Medical History / Comment(s): Mother has history of breast can cer. Father Additional Family Medical History / Comment(s): Patient does not know her father's history. Sister(s) Additional Family Medical History / Comment(s): Patient has 1 sister with no major medical problems. Patient is on IV pressors. Patient has 2 daughters one half endometriosis and mental health issues. Medications and Allergies Home Medications Medication Instructions Recorded Confirmed Type Sertraline [Zoloft] 200 mg PO DAILY 05/19/16 02/27/22 History Levothyroxine Sodium [Synthroid] 100 mcg PO DAILY 11/09/19 02/27/22 History buPROPion HCL [Wellbutrin XL] 300 mg PO DAILY 11/09/19 02/27/22 History Aspirin 81 mg PO DAILY chew 11/11/19 02/27/22 Rx Clopidogrel [Plavix] 75 mg PO DAILY #30 tab 11/11/19 02/27/22 Rx Metoprolol Succinate (ER) [Toprol 25 mg PO DAILY #30 tab.er.24h 11/11/19 02/27/22 Rx XL] Nitroglycerin Sl Tabs [Nitrostat] 0.4 mg SUBLINGUAL Q5M PRN #25 tab 11/11/19 02/27/22 Rx Atorvastatin [Lipitor] 80 mg PO DAILY 02/21/21 02/27/22 History Cetirizine HCl [Zyrtec] 10 mg PO DAILY 02/27/22 02/27/22 History Cholecalciferol [Vitamin D3 (25 25 mcg PO DAILY 02/27/22 02/27/22 History Mcg = 1000 Iu)] Folic Acid 0.4 mg PO DAILY 02/27/22 02/27/22 History Losartan [Cozaar] 25 mg PO DAILY 02/27/22 02/27/22 History busPIRone HCL [Buspar] 7.5 mg PO TID 02/27/22 02/27/22 History Allergies Allergy/AdvReac Type Severity Reaction Status Date / Time chocolate flavor Allergy Unknown Verified 02/27/22 06:31 promethazine HCl Allergy Unknown Verified 02/27/22 06:31 [From Phenergan] Childhood tomato Allergy Unknown Verified 02/27/22 06:31 tramadol Allergy Unknown Verified 02/27/22 06:31 Physical Exam Vitals: Vital Signs Temp Pulse Pulse Resp BP BP Pulse Ox 02/27/22 07:46 98.3 F 69 12 131/79 96 02/27/22 05:13 70 16 111/69 98 02/27/22 03:17 67 18 136/83 97 02/27/22 00:39 98.3 F 80 19 139/77 97 Intake and Output 02/26/22 02/27/22 02/27/22 22:59 06:59 14:59 Other: Weight 77.111 kg 77.111 kg Results 02/27/22 01:05 02/27/22 01:05 Cardiac Enzymes 02/27/22 02/27/22 02/27/22 Range/Units 01:05 01:05 05:35 AST 31 (14-36) U/L Troponin I <0.012 <0.012 (0.000-0.034) ng/mL Coagulation 02/27/22 Range/Units 01:05 PT 10.2 (9.0-12.0) sec APTT 23.4 (22.0-30.0) sec CBC 02/27/22 Range/Units 01:05 WBC 7.1 (3.8-10.6) k/uL RBC 4.77 (3.80-5.40) m/uL Hgb 13.7 (11.4-16.0) gm/dL Hct 42.7 (34.0-46.0) % Plt Count 262 (150-450) k/uL Comprehensive Metabolic Panel 02/27/22 Range/Units 01:05 Sodium 138 (137-145) mmol/L Potassium 3.8 (3.5-5.1) mmol/L Chloride 106 (98-107) mmol/L Carbon Dioxide 28 (22-30) mmol/L BUN 9 (7-17) mg/dL Creatinine 0.78 (0.52-1.04) mg/dL Glucose 96 (74-99) mg/dL Calcium 8.8 (8.4-10.2) mg/dL AST 31 (14-36) U/L ALT 28 (4-34) U/L Alkaline Phosphatase 73 (38-126) U/L Total Protein 6.6 (6.3-8.2) g/dL Albumin 4.1 (3.5-5.0) g/dL Current Medications Generic Name Dose Route Start Last Admin Trade Name Freq PRN Reason Stop Dose Admin Acetaminophen 650 mg 02/27/22 03:37 Acetaminophen Tab 325 Mg Tab PO Q6HR PRN Fever and/ or Pain Albuterol Sulfate 2.5 mg 02/27/22 03:37 Albuterol Nebulized 2.5 Mg/3 Ml INHALATION RT-Q4H PRN Shortness Of Breath Aspirin 81 mg 02/27/22 09:00 Aspirin 81 Mg PO DAILY [facility] Atorvastatin Calcium 80 mg 02/27/22 09:00 Atorvastatin 80 Mg Tab PO DAILY [facility] Bupropion HCl 300 mg 02/27/22 09:00 Bupropion Xl 300 Mg Tab.Er.24h PO DAILY [facility] Clopidogrel Bisulfate 75 mg 02/27/22 09:00 Clopidogrel 75 Mg Tab PO DAILY [facility] Levothyroxine Sodium 50 mcg 02/27/22 06:30 02/27/22 07:45 Levothyroxine 50 Mcg Tab PO Not Given DAILY@0630 [facility] Losartan Potassium 25 mg 02/27/22 21:00 Losartan 25 Mg Tab PO HS [facility] Magnesium Oxide 400 mg 02/27/22 09:00 Magnesium Oxide 400 Mg Tab PO DAILY [facility] Metoprolol Succinate 25 mg 02/27/22 09:00 02/27/22 08:58 Metoprolol Succinate (Er) 25 Mg Tab.Er.24h PO Not Given DAILY [facility] Nitroglycerin 0.4 mg 02/27/22 03:23 Nitroglycerin Sl Tabs 0.4 Mg Tab SUBLINGUAL Q5M PRN Chest Pain Pantoprazole Sodium 40 mg 02/27/22 07:30 02/27/22 07:45 Pantoprazole 40 Mg Tablet PO Not Given -BRKFST [facility] Sertraline HCl 200 mg 02/27/22 09:00 Sertraline 100 Mg Tab PO DAILY [facility] Intake and Output 02/26/22 02/27/22 02/27/22 22:59 06:59 14:59 Other: Weight 77.111 kg 77.111 kg Patient Weight 02/28/22 06:59 Weight 77.111 kg 02/27/22 01:05 02/27/22 01:05
--- NOTE | 2022-02-27 11:56 | CA ---
Transthoracic Echo Report Name: Akanksha Carey Age: 46 Gender: F : 1975 Exam Date: 02/27/2022 09:12 Exam Location: [place] [facility] Ht (in): 67 Wt (lb): 170 Ordering Physician: Miranda Carrillo Attending/Referring Phys: [id number], Lorena Manager Statistical Programming Dori Luna, MICHAEL Procedure CPT: Indications: LV function Cardiac Hx: Technical Quality: Good Contrast 1: N/A Total Dose (mL): Contrast 2: Total Dose (mL): MEASUREMENTS (Male / Female) Normal Values 2D ECHO LA Volume 44.9 cm??? 18 - 58 / 22 - 52 cm??? M-MODE Aortic Root Diameter MM 3.1 cm LA Systolic Diameter MM 3.2 cm LA Ao Ratio MM 1.1 MV E Point Septal Separation 0.3 cm AV Cusp Separation MM 1.9 cm DOPPLER MV Area PHT 4.6 cm??? Mitral E Point Velocity 74.8 cm/s Mitral A Point Velocity 62.7 cm/s Mitral E to A Ratio 1.2 MV Deceleration Time 164.0 ms MV E' Velocity 7.8 cm/s Mitral E to MV E' Ratio 9.6 FINDINGS Left Ventricle Normal Left ventricular size, wall thickness, systolic function with no obvious regional wall motion abnormalities. Normal Left ventricular diastolic filling pattern. Right Ventricle Normal right ventricular size and function. Right ventricular systolic pressure within normal limits. Right Atrium Normal right atrial size. Left Atrium Normal left atrial size. Mitral Valve Structurally normal mitral valve. Mild mitral regurgitation. Aortic Valve Trileaflet aortic valve. No aortic valve stenosis or regurgitation. Tricuspid Valve Structurally normal tricuspid valve. Trace tricuspid regurgitation. Pulmonic Valve Structurally normal pulmonic valve. Pericardium Normal pericardium. Aorta Normal size aortic root and proximal ascending aorta. CONCLUSIONS Normal left ventricular ejection fraction 55-60% Normal RVSP Mild mitral regurgitation Trace tricuspid regurgitation No pericardial effusion Previewed by: Dr. Daniel Harris DO (Electronically Signed) Final Date: 27 February 2022 11:55
--- NOTE | 2022-02-27 12:01 | CA ---
Stress Echo Report Akanksha Carey Age: 46 Gender: F : 1975 Exam Date: 02/27/2022 09:21 Exam Location: [facility] Ht (in): 65 Wt (lb): 170 Ordering Physician: Miranda Carrillo Referring Physician: [id number] Pst Supervisor: Dori Luna RDCS Technologist Procedure CPT: Indication: Chest Pain ICD-9 Codes: Rhythm: Patient History: cp, sob Cardiac Medications: see attached list Medications in past 24 hours: Contrast: N/A Stress Results Protocol: Jose Total dose(mL): Exercise Duration (min:sec): 9.[address] Depression (mm): Angina Score: 0 Ortiz Score: METS: 9.5 Resting HR: 76 Resting BP: 134 / 68 Peak HR: 139 Peak BP: 199 / 91 Max Predicted HR: 172 81 % Max Predicted HR Target HR: 146 Double Product: [id number] Stress Summary: BP Response: Reason for Termination: Pt was dizzy Cardiac Symptoms: ECG Analysis Resting ECG: Stress ECG: Arrhythmia: Echo Analysis Resting Echo: Peak Echo Analysis: MEASUREMENTS (Male/Female) Normal Values CONCLUSIONS Patient underwent exercise stress echo with a Jose protocol treadmill stress test. Patient exercised into Stage 3 for a total of 9 minutes and 17 seconds reaching a total of 9.5 METS. Patient's maximum heart rate was 141 which represented 81% age- predicted maximum heart rate. Stress EKG portion: At baseline patient's EKG showed normal sinus rhythm, normal axis, no significant ST or T wave abnormalities. At peak exercise, EKG showed minimal 0.[address] depressions in the lateral leads. Stress echo portion: 2-D echocardiogram was performed in the parasternal long, personal short, apical 2 and apical four-chamber views at rest, peak exercise and in recovery. At baseline, echocardiogram showed left ventricular ejection fraction 55% without wall motion abnormalities. With peak exercise, echocardiogram shows improvement in left ventricular ejection fraction, increase contractility, decrease in left ventricular end systolic dimension without wall motion abnormalities consistent with a normal response to exercise. Conclusions: 1. Nondiagnostic stress echo secondary to inability to reach 85% maximum predicted heart rate. However have 81% maximum predicted heart rate, normal EKG and echo response to exercise without evidence of inducible ischemia. 2. Good exercise capacity. 3. Normal ejection fraction 55% Dr. Daniel Harris DO (Electronically Signed) Final Date: 27 February 2022 12:00
[2022-02-27 13:47] VITALS: BP 127/74; PULSE 77; RESP 14; TEMP 97.9
--- NOTE | 2022-02-27 13:48 | P.HPIM ---
History of Present Illness Chief Complaint: Chest pain Patient is a 46-year-old female with a past medical history significant for coronary disease status post PCI, hypogonadism, essential hypertension, hyperlipidemia that presents a hospital complaining of nonspecific chest pain. Patient states that this started yesterday and was getting worse. She'll was described the pain as heartburn. Patient was examined at bedside denied any active chest pain during my examination, shortness of breath or palpitations. She did undergo a stress test which did come back and was negative. Cardiology is on board and they have recommended stable to be discharge. At this time patient's vital signs are stable normotensive, afebrile, CBC unremarkable, BMP unremarkable including cardiac troponin 3 negative. Stress test was also completed and the patient is stable for discharge. Perspective. At this time the patient's asked to follow with cardiology and PCP within 1 week of discharge. Past Medical History Past Medical History: Asthma, GERD/Reflux, Myocardial Infarction ([place]) Additional Past Medical History / Comment(s): constipation, abd pain, spinal stenosis, sciatica, migraines Last Myocardial Infarction Date:: 10/2019 History of Any Multi-Drug Resistant Organisms: None Reported Past Surgical History: Heart Catheterization With Stent Additional Past Surgical History / Comment(s): laproscopy for molar Past Anesthesia/Blood Transfusion Reactions: No Reported Reaction Date of Last Stent Placement:: 10/2019 Past Psychological History: Depression Smoking Status: Former smoker Past Alcohol Use History: None Reported Additional Past Alcohol Use History / Comment(s): 1 pack per day for 24 years and quit in 2010. Past Drug Use History: None Reported - Past Family History Mother Family Medical History: Cancer Additional Family Medical History / Comment(s): Mother has history of breast cancer. Father Additional Family Medical History / Comment(s): Patient does not know her father's history. Sister(s) Additional Family Medical History / Comment(s): Patient has 1 sister with no major medical problems. Patient is on IV pressors. Patient has 2 daughters one half endometriosis and mental health issues. Medications and Allergies Home Medications Medication Instructions Recorded Confirmed Type Sertraline [Zoloft] 200 mg PO DAILY 05/19/16 02/27/22 History Levothyroxine Sodium [Synthroid] 100 mcg PO DAILY 11/09/19 02/27/22 History buPROPion HCL [Wellbutrin XL] 300 mg PO DAILY 11/09/19 02/27/22 History Aspirin 81 mg PO DAILY chew 11/11/19 02/27/22 Rx Clopidogrel [Plavix] 75 mg PO DAILY #30 tab 11/11/19 02/27/22 Rx Metoprolol Succinate (ER) [Toprol 25 mg PO DAILY #30 tab.er.24h 11/11/19 02/27/22 Rx XL] Nitroglycerin Sl Tabs [Nitrostat] 0.4 mg SUBLINGUAL Q5M PRN #25 tab 11/11/19 02/27/22 Rx Atorvastatin [Lipitor] 80 mg PO DAILY 02/21/21 02/27/22 History Cetirizine HCl [Zyrtec] 10 mg PO DAILY 02/27/22 02/27/22 History Cholecalciferol [Vitamin D3 (25 25 mcg PO DAILY 02/27/22 02/27/22 History Mcg = 1000 Iu)] Folic Acid 0.4 mg PO DAILY 02/27/22 02/27/22 History Losartan [Cozaar] 25 mg PO DAILY 02/27/22 02/27/22 History busPIRone HCL [Buspar] 7.5 mg PO TID 02/27/22 02/27/22 History Allergies Allergy/AdvReac Type Severity Reaction Status Date / Time chocolate flavor Allergy Unknown Verified 02/27/22 06:31 promethazine HCl Allergy Unknown Verified 02/27/22 06:31 [From Phenergan] Childhood tomato Allergy Unknown Verified 02/27/22 06:31 tramadol Allergy Unknown Verified 02/27/22 06:31 Physical Exam Vitals: Vital Signs Temp Pulse Pulse Resp BP BP Pulse Ox 02/27/22 07:46 98.3 F 69 12 131/79 96 02/27/22 05:13 70 16 111/69 98 02/27/22 03:17 67 18 136/83 97 02/27/22 00:39 98.3 F 80 19 139/77 97 Intake and Output 02/26/22 02/27/22 02/27/22 22:59 06:59 14:59 Other: Weight 77.111 kg 77.111 kg Gen. patient is awake alert oriented 3 Cardio normal S1/S2 Abdomen soft, nontender positive bowel sounds Extremity no pitting edema Results CBC & Chem 7: 02/27/22 01:05 02/27/22 01:05 Thrombosis Risk Factor Assmnt - Choose All That Apply Any of the Below Risk Factors Present?: Yes Each Factor Represents 1 point: Age 41-60 years, Obesity (BMI >25) Other Risk Factors: No Other congenital or acquired thrombophilia - If yes, enter type in comment: No Thrombosis Risk Factor Assessment Total Risk Factor Score: 2 Thrombosis Risk Factor Assessment Level: Low Risk Assessment and Plan Assessment: Assessment/plan: Chest pain rule out ACS Essential hypertension Coronary disease status post PCI Hypothyroidism Hyperlipidemia Plan: -Admit to medicine for close monitoring -Stress test completed negative as per vp site spoke with PLATE DEVELOPER the patient stable to be discharged from their perspective -Continue with home medication as per consulting team -Patient is okay to discharge.
--- NOTE | 2022-02-27 14:06 | P.DS ---
Providers Date of admission: 02/27/22 03:23 Attending physician: Cheryl Carr DO Primary care physician: Physician Nonstaff Hospital Course: Patient is a 46-year-old female with a past medical history significant for coronary disease status post PCI, hypogonadism, essential hypertension, hyperlipidemia that presents a hospital complaining of nonspecific chest pain. Patient states that this started yesterday and was getting worse. She'll was described the pain as heartburn. Patient was examined at bedside denied any active chest pain during my examination, shortness of breath or palpitations. She did undergo a stress test which did come back and was negative. Cardiology is on board and they have recommended stable to be discharge. At this time patient's vital signs are stable normotensive, afebrile, CBC unremarkable, BMP unremarkable including cardiac troponin 3 negative. Stress test was also completed and the patient is stable for discharge. Perspective. At this time the patient's asked to follow with cardiology and PCP within 1 week of discharge. Plan - Discharge Summary Discharge Rx Participant: No New Discharge Prescriptions: Continue Sertraline [Zoloft] 200 mg PO DAILY buPROPion HCL [Wellbutrin XL] 300 mg PO DAILY Levothyroxine Sodium [Synthroid] 100 mcg PO DAILY Aspirin 81 mg PO DAILY chew Nitroglycerin Sl Tabs [Nitrostat] 0.4 mg SUBLINGUAL Q5M PRN #25 tab PRN Reason: Chest Pain Clopidogrel [Plavix] 75 mg PO DAILY #30 tab Metoprolol Succinate (ER) [Toprol XL] 25 mg PO DAILY #30 tab.er.24h Folic Acid 0.4 mg PO DAILY Losartan [Cozaar] 25 mg PO DAILY Atorvastatin [Lipitor] 80 mg PO DAILY busPIRone HCL [Buspar] 7.5 mg PO TID Cetirizine HCl [Zyrtec] 10 mg PO DAILY Cholecalciferol [Vitamin D3 (25 Mcg = 1000 Iu)] 25 mcg PO DAILY Discharge Medication List Sertraline [Zoloft] 200 mg PO DAILY 05/19/16 [History] Levothyroxine Sodium [Synthroid] 100 mcg PO DAILY 11/09/19 [History] buPROPion HCL [Wellbutrin XL] 300 mg PO DAILY 11/09/19 [History] Aspirin 81 mg PO DAILY chew 11/11/19 [Rx] Clopidogrel [Plavix] 75 mg PO DAILY #30 tab 11/11/19 [Rx] Metoprolol Succinate (ER) [Toprol XL] 25 mg PO DAILY #30 tab.er.24h 11/11/19 [Rx] Nitroglycerin Sl Tabs [Nitrostat] 0.4 mg SUBLINGUAL Q5M PRN #25 tab 11/11/19 [Rx] Atorvastatin [Lipitor] 80 mg PO DAILY 02/21/21 [History] Cetirizine HCl [Zyrtec] 10 mg PO DAILY 02/27/22 [History] Cholecalciferol [Vitamin D3 (25 Mcg = 1000 Iu)] 25 mcg PO DAILY 02/27/22 [History] Folic Acid 0.4 mg PO DAILY 02/27/22 [History] Losartan [Cozaar] 25 mg PO DAILY 02/27/22 [History] busPIRone HCL [Buspar] 7.5 mg PO TID 02/27/22 [History] Follow up Appointment(s)/Referral(s): Nonstaff,Physician [Primary Care Provider] - 1-2 days Daniel Harris DO [STAFF PHYSICIAN] - 1 Week Discharge Disposition: HOME SELF-CARE
[2022-02-27] MEDS ORDERED: LOSARTAN 25 MG TAB PO SCH (21:00)
[2022-02-28] MEDS ORDERED: ASPIRIN 325 MG TAB PO SCH (09:00)
== END 2022-02-27 14:52 | disposition home or self-care (01) ==
LOC: EC 00:35 → 6NMEDSUR 03:23
PROVIDERS: ADMIT Internal Medicine; ATTEND Internal Medicine
DX: R07.2 Precordial pain (principal); I10 Essential (primary) hypertension; I08.1 Rheumatic disorders of both mitral and tricuspid valves; I25.10 Atherosclerotic heart disease of native coronary artery without angina pectoris; E03.9 Hypothyroidism, unspecified; E78.5 Hyperlipidemia, unspecified; F32.A Depression, unspecified; I25.2 Old myocardial infarction; J45.909 Unspecified asthma, uncomplicated; Z86.69 Personal history of other diseases of the nervous system and sense organs; K21.9 Gastro-esophageal reflux disease without esophagitis; K59.00 Constipation, unspecified; M48.00 Spinal stenosis, site unspecified; M54.30 Sciatica, unspecified side; Z79.02 Long term (current) use of antithrombotics/antiplatelets; Z79.82 Long term (current) use of aspirin; Z79.890 Hormone replacement therapy; Z79.899 Other long term (current) drug therapy; Z91.018 Allergy to other foods; Z88.5 Allergy status to narcotic agent; Z88.8 Allergy status to other drugs, medicaments and biological substances; Z87.891 Personal history of nicotine dependence; Z98.61 Coronary angioplasty status; Z80.3 Family history of malignant neoplasm of breast
CPT/HCPCS: 99285; 36415; 93005; 93306; 93351; 80053; 83735; 84484; 85025; 85610; 85730; 71046; G0378

== ENCOUNTER 2022-03-24 18:58 | Emergency (ER) | payer OTHER ==
[2022-03-24 20:51] VITALS: BP 122/84; PULSE 90; RESP 18; TEMP 97.9
[2022-03-24] MEDS ORDERED: ONDANSETRON ODT 4 MG TAB PO STA (21:04)
[2022-03-24] MEDS ORDERED: KETOROLAC 15 MG/ML 1 ML VIAL IM STA (21:04)
--- NOTE | 2022-03-24 21:17 | ED ---
Headache HPI - General Chief Complaint: Headache Stated Complaint: Migraine Time Seen by Provider: 03/24/22 21:04 Mode of arrival: ambulatory Limitations: no limitations - History of Present Illness Initial Comments: Patient is a 47-year-old female presenting with chief complaint of headache for the last 2 days. Patient states she has a history of migraines, and this feels consistent with her regular migraine headaches. She's been taking naproxen at home without much relief. She admits to light sensitivity, nausea. She states that the pain is primarily located behind her left eye and goes up into the back of the head. She denies any fever, chills, vomiting, neck stiffness, vision or hearing changes, chest pain, shortness of breath, abdominal pain, dizziness, weakness. - Related Data Home Medications Medication Instructions Recorded Confirmed Sertraline [Zoloft] 200 mg PO DAILY 05/19/16 02/27/22 Levothyroxine Sodium [Synthroid] 100 mcg PO DAILY 11/09/19 02/27/22 buPROPion HCL [Wellbutrin XL] 300 mg PO DAILY 11/09/19 02/27/22 Atorvastatin [Lipitor] 80 mg PO DAILY 02/21/21 02/27/22 Cetirizine HCl [Zyrtec] 10 mg PO DAILY 02/27/22 02/27/22 Cholecalciferol [Vitamin D3 (25 25 mcg PO DAILY 02/27/22 02/27/22 Mcg = 1000 Iu)] Folic Acid 0.4 mg PO DAILY 02/27/22 02/27/22 Losartan [Cozaar] 25 mg PO DAILY 02/27/22 02/27/22 busPIRone HCL [Buspar] 7.5 mg PO TID 02/27/22 02/27/22 Previous Rx's Medication Instructions Recorded Aspirin 81 mg PO DAILY chew 11/11/19 Clopidogrel [Plavix] 75 mg PO DAILY #30 tab 11/11/19 Metoprolol Succinate (ER) [Toprol 25 mg PO DAILY #30 tab.er.24h 11/11/19 XL] Nitroglycerin Sl Tabs [Nitrostat] 0.4 mg SUBLINGUAL Q5M PRN #25 tab 11/11/19 Allergies Allergy/AdvReac Type Severity Reaction Status Date / Time chocolate flavor Allergy Unknown Verified 03/24/22 20:51 promethazine HCl Allergy Unknown Verified 03/24/22 20:51 [From Phenergan] Childhood tomato Allergy Unknown Verified 03/24/22 20:51 tramadol Allergy Unknown Verified 03/24/22 20:51 Review of Systems ROS Statement: Those systems with pertinent positive or pertinent negative responses have been documented in the HPI. ROS Other: All systems not noted in ROS Statement are negative. Past Medical History Past Medical History: Asthma, GERD/Reflux, Myocardial Infarction ([place]) Additional Past Medical History / Comment(s): constipation, abd pain, spinal stenosis, sciatica, migraines Last Myocardial Infarction Date:: 10/2019 History of Any Multi-Drug Resistant Organisms: None Reported Past Surgical History: Heart Catheterization With Stent Additional Past Surgical History / Comment(s): laproscopy for molar Past Anesthesia/Blood Transfusion Reactions: No Reported Reaction Date of Last Stent Placement:: 10/2019 Past Psychological History: Depression Smoking Status: Former smoker Past Alcohol Use History: None Reported Past Drug Use History: None Reported - Past Family History Mother Family Medical History: Cancer Additional Family Medical History / Comment(s): Mother has history of breast cancer. Father Additional Family Medical History / Comment(s): Patient does not know her father's history. Sister(s) Additional Family Medical History / Comment(s): Patient has 1 sister with no major medical problems. Patient is on IV pressors. Patient has 2 daughters one half endometriosis and mental health issues. General Exam Limitations: no limitations General appearance: alert, in no apparent distress Head exam: Present: atraumatic, normocephalic, normal inspection Eye exam: Present: normal appearance, PERRL, EOMI. Absent: scleral icterus, periorbital swelling Pupils: Present: normal accommodation ENT exam: Present: normal exam, mucous membranes moist Neck exam: Present: normal inspection, full ROM. Absent: meningismus Respiratory exam: Present: normal lung sounds bilaterally. Absent: respiratory distress, wheezes, rales, rhonchi, stridor Cardiovascular Exam: Present: regular rate, normal rhythm, normal heart sounds. Absent: systolic murmur, diastolic murmur, rubs, gallop, clicks Back exam: Present: normal inspection Neurological exam: Present: alert, oriented X3, CN II-XII intact Expanded Patient oriented to: Present: person, place, time Speech: Present: fluid speech Cranial nerves: EOM's Intact: Normal, Facial Sensation: Normal Cerebellar function: Finger to Nose: Normal Sensory exam: Upper Extremity Light Touch: Normal, Lower Extremity Light Touch: Normal Motor strength exam: RUE: 5, LUE: 5, RLE: 5, LLE: 5 Eye Response: (4) open spontaneously Motor Response: (6) obeys commands Verbal Response: (5) oriented [place] Total: 15 Psychiatric exam: Present: normal affect, normal mood Skin exam: Present: warm, dry, intact, normal color. Absent: rash Course Vital Signs 03/24/22 20:49 Temperature 97.9 F Pulse Rate 90 Respiratory 18 Rate Blood Pressure 122/84 O2 Sat by Pulse 100 Oximetry Medical Decision Making - Medical Decision Making Patient is a 47-year-old female presenting with chief complaint of headache. She has a history of migraines and states that this feels consistent with her regular migraines. Patient is requesting a Toradol shot. On examination there are no focal neurological deficits, heart and lungs are clear to auscultation. Patient is given 30 mg Toradol and 4 mg Zofran. She appears stable for discharge with outpatient follow-up at this time. Follow-up with PCP in one to 2 days. Report back to ER if any new or worsening symptoms. Discussed return parameters answered all questions. Patient conveyed verbal understanding and agreed to the plan. My attending is Dr. La. Disposition Clinical Impression: Migraine headache Disposition: HOME SELF-CARE Condition: Good Instructions (If sedation given, give patient instructions): Migraine Headache (ED) Additional Instructions: Follow-up with PCP in one to 2 days. Utilize Motrin and Tylenol home as needed for pain control. Report back to ER if any new or worsening symptoms. Is patient prescribed a controlled substance at d/c from ED?: No Referrals: Heather Vidales [Primary Care Provider] - 1-2 days Time of Disposition: 21:17
== END 2022-03-24 21:27 | disposition home or self-care (01) ==
LOC: EC 18:58
DX: G43.909 Migraine, unspecified, not intractable, without status migrainosus (principal); J45.909 Unspecified asthma, uncomplicated; K21.9 Gastro-esophageal reflux disease without esophagitis; I25.2 Old myocardial infarction; F32.A Depression, unspecified; Z87.891 Personal history of nicotine dependence; Z91.018 Allergy to other foods; Z88.8 Allergy status to other drugs, medicaments and biological substances; Z88.5 Allergy status to narcotic agent; Z79.899 Other long term (current) drug therapy
CPT/HCPCS: 99283; 96372 ×2; J1885

== ENCOUNTER 2023-03-23 18:05 | Emergency (ER) | payer OTHER ==
[2023-03-23 18:13] VITALS: TEMP 97.4
[2023-03-23 19:27] LABS: Basophils % (A) 1 %; Eosinophils # (A) 0.1 k/uL (0-0.7); Eosinophils % (A) 1 %; HCT 38.2 % (34.0-46.0); HGB 12.9 gm/dL (11.4-16.0); Lymphocytes # (A) 2.3 k/uL (1.0-4.8); Lymphocytes % (A) 32 %; MCH 29.6 pg (25.0-35.0); MCHC 33.8 g/dL (31.0-37.0); MCV 87.4 fL (80.0-100.0); Mean Platelet Volume 7.4; Monocytes # (A) 0.5 k/uL (0-1.0); Monocytes % (A) 7 %; Neutrophils # (A) 4.3 k/uL (1.3-7.7); Neutrophils % (A) 58 %; Platelet Count 271 k/uL (150-450); RBC 4.37 m/uL (3.80-5.40); WBC 7.4 k/uL (3.8-10.6)
[2023-03-23 19:36] LABS: ALT 42 U/L (4-34); AST 35 U/L (14-36); African American GFR (CKD) >90 (>60 ml/min/1.73 sqM); Albumin 3.5 g/dL (3.5-5.0); Alkaline Phosphatase 68 U/L (38-126); Amylase 46 U/L (30-110); Anion Gap 5 mmol/L; Blood Urea Nitrogen 9 mg/dL (7-17); Calcium 8.5 mg/dL (8.4-10.2); Carbon Dioxide 25 mmol/L (22-30); Chloride 106 mmol/L (98-107); Glucose 75 mg/dL (74-99); Lipase 438 U/L (23-300); Non-African American GFR(CKD) >90 (>60 ml/min/1.73 sqM); Potassium 3.8 mmol/L (3.5-5.1); Sodium 136 mmol/L (137-145); Total Bilirubin 0.3 mg/dL (0.2-1.3)
[2023-03-23 20:04] LABS: Appearance,Urine Cloudy (Clear); Bilirubin,Urine Negative (Negative); Blood,Urine Negative (Negative); Color,Urine Light Yellow; Glucose,Urine (UA) Negative (Negative); Hyaline Casts,Urine 1 /lpf (0-2); Ketones,Urine Negative (Negative); Leukocyte Esterase,Urine Negative (Negative); Mucus,Urine Occasional /hpf; Nitrite,Urine Negative (Negative); Protein,Urine Negative (Negative); RBC,Urine <1 /hpf (0-5); Specific Gravity,Urine 1.008 (1.001-1.035); Squamous Epithelial Cell,Urine 8 /hpf (0-4); Urobilinogen,Urine <2.0 mg/dL (<2.0); WBC,Urine 2 /hpf (0-5)
--- NOTE | 2023-03-23 21:53 | ED ---
General Adult HPI - General Chief complaint: Back Pain/Injury Stated complaint: nausea, abd pain, back pain Time Seen by Provider: 03/23/23 18:51 Source: patient, RN notes reviewed Mode of arrival: ambulatory - History of Present Illness Initial comments: 48-year-old female presents emergency department chief complaint of left flank pain and left-sided abdominal pain 2 weeks. Patient states that is progressively getting worse but notes no triggers. She states she has not been taking anything for pain. She reports normal appetite. She admits to some nausea. Denies fever, chills. Denies diarrhea, vomiting. Denies dysuria, urinary frequency, hematuria. - Related Data Home Medications Medication Instructions Recorded Confirmed Levothyroxine Sodium [Synthroid] 50 mcg PO DAILY 11/09/19 03/23/23 Atorvastatin [Lipitor] 80 mg PO DAILY 02/21/21 03/23/23 Losartan [Cozaar] 25 mg PO DAILY 02/27/22 03/23/23 FLUoxetine HCL [Prozac] 40 mg PO HS 03/23/23 03/23/23 QUEtiapine [SEROquel] 100 mg PO HS 03/23/23 03/23/23 busPIRone HCl [Buspar] 20 mg PO HS 03/23/23 03/23/23 Previous Rx's Medication Instructions Recorded Aspirin 81 mg PO DAILY chew 11/11/19 Clopidogrel [Plavix] 75 mg PO DAILY #30 tab 11/11/19 Metoprolol Succinate (ER) [Toprol 25 mg PO DAILY #30 tab.er.24h 11/11/19 XL] Allergies Allergy/AdvReac Type Severity Reaction Status Date / Time chocolate flavor Allergy Unknown Verified 03/23/23 20:30 promethazine HCl Allergy Unknown Verified 03/23/23 20:30 [From Phenergan] Childhood tomato Allergy Unknown Verified 03/23/23 20:30 tramadol Allergy Unknown Verified 03/23/23 20:30 Review of Systems ROS Statement: Those systems with pertinent positive or pertinent negative responses have been documented in the HPI. ROS Other: All systems not noted in ROS Statement are negative. Past Medical History Past Medical History: Asthma, GERD/Reflux, Myocardial Infarction ([place]) Additional Past Medical History / Comment(s): constipation, abd pain, spinal stenosis, sciatica, migraines Last Myocardial Infarction Date:: 10/2019 History of Any Multi-Drug Resistant Organisms: None Reported Past Surgical History: Heart Catheterization With Stent Additional Past Surgical History / Comment(s): laproscopy for molar Past Anesthesia/Blood Transfusion Reactions: No Reported Reaction Date of Last Stent Placement:: 10/2019 Past Psychological History: Depression Smoking Status: Former smoker Past Alcohol Use History: None Reported Past Drug Use History: None Reported - Past Family History Mother Family Medical History: Cancer Additional Family Medical History / Comment(s): Mother has history of breast cancer. Father Additional Family Medical History / Comment(s): Patient does not know her father's history. Sister(s) Additional Family Medical History / Comment(s): Patient has 1 sister with no ma eloy medical problems. Patient is on IV pressors. Patient has 2 daughters one half endometriosis and mental health issues. General Exam Limitations: no limitations General appearance: alert, in no apparent distress Head exam: Present: atraumatic, normocephalic, normal inspection Eye exam: Present: normal appearance, PERRL, EOMI. Absent: scleral icterus, conjunctival injection, periorbital swelling ENT exam: Present: normal exam, mucous membranes moist Neck exam: Present: normal inspection. Absent: tenderness, meningismus, lymp hadenopathy Respiratory exam: Present: normal lung sounds bilaterally. Absent: respiratory distress, wheezes, rales, rhonchi, stridor Cardiovascular Exam: Present: regular rate, normal rhythm, normal heart sounds. Absent: systolic murmur, diastolic murmur, rubs, gallop, clicks GI/Abdominal exam: Present: soft, normal bowel sounds. Absent: distended, tenderness, guarding, rebound, rigid Extremities exam: Present: normal inspection, full ROM, normal capillary refill. Absent: tenderness, pedal edema, joint swelling, calf tenderness Back exam: Present: normal inspection. Absent: CVA tenderness (R), CVA tenderness (L), muscle spasm, paraspinal tenderness, vertebral tenderness Neurological exam: Present: alert, oriented X3 Psychiatric exam: Present: normal affect, normal mood Skin exam: Present: warm, dry, intact, normal color. Absent: rash Course Vital Signs 03/23/23 03/23/23 18:09 22:11 Temperature 97.4 F L Pulse Rate 73 70 Respiratory 20 18 Rate Blood Pressure 124/68 140/69 O2 Sat by Pulse 97 98 Oximetry Medical Decision Making - Medical Decision Making Was pt. sent in by a medical professional or institution ([facility], [employer] [facility], urgent care, hospital, or intermediate...) When possible be specific @ -No Did you speak to anyone other than the patient for history (EMS, parent, family, police, friend...)? What history was obtained from this source @ -No Did you review nursing and triage notes (agree or disagree)? Why? @ -I reviewed and agree with nursing and triage notes Were old charts reviewed (outside hosp., previous admission, EMS record, old EKG, old radiological studies, urgent care reports/EKG's, intermediate records)? Report findings @ -No old charts were reviewed Differential Diagnosis (chest pain, altered mental status, abdominal pain women, abdominal pain men, vaginal bleeding, weakness, fever, dyspnea, syncope, headache, dizziness, GI bleed, back pain, seizure, CVA, palpatations, mental health, musculoskeletal)? @ -Differential Abdominal Pain Women: Appendicitis, Cholecystitis, diverticulosis, ischemic bowel, pancreatitis, hepatitis, UTI, gastroenteritis, AAA, incarcerated hernia, bowel obstruction, constipation, inflammatory bowel, hepatitis, peptic ulcer disease, splenic infarction, perforated viscus, vulvitis, ovarian torsion, PID, kidney stone, placenta abruption, this is not meant to be an all-inclusive list EKG interpreted by me (3pts min.). @ -None X-rays interpreted by me (1pt min.). @ -None done CT interpreted by me (1pt min.). @ -None done U/S interpreted by me (1pt. min.). @ -None done What testing was considered but not performed or refused? (CT, X-rays, U/S, labs)? Why? @ -imaging was considered but patients labs were wnl and patient was nontender on exam What meds were considered but not given or refused? Why? @ -None Did you discuss the management of the patient with other professionals (professionals i.e. [facility], [employer], lab, RT, psych nurse, manager social services, banquet stewardess, teacher, sea air land officer, case packer and sealer)? Give summary @ -No Was smoking cessation discussed for >3mins.? @ -No Was critical care preformed (if so, how long)? @ -No Were there social determinants of health that impacted care today? How? (Homelessness, low income, unemployed, alcoholism, drug addiction, transportation, low edu. Level, literacy, decrease access to med. care, longterm, rehab)? @ -No Was there de-escalation of care discussed even if they declined (Discuss DNR or withdrawal of care, Hospice)? DNR status @ -No What co-morbidities impacted this encounter? (DM, HTN, Smoking, COPD, CAD, Cancer, CVA, ARF, Chemo, Hep., AIDS, mental health diagnosis, sleep apnea, morbid obesity)? @ -None Was patient admitted / discharged? Hospital course, mention meds given and r oute, prescriptions, significant lab abnormalities, going to OR and other pertinent info. @ -Discharged. Patient presented to the emergency department for chief complaint of left sided flank and abdominal pain x2 weeks. Patients abdomen is soft, nondistended, nontender. CBC within normal limits; CMP showed sodium 136, potassium 3.8 BUN 9, creatinine 0.72, lipase 438; UA showed cloudy urine, negative protein, negative ketones, negative blood, negative nitrate, negative leukocyte esterase. Discussed with patient results of studies. Patient agreeable to discharge and advised to follow up with her pcp. Patient was discharged in stable condition. Case discussed with my attending, Dr. Diaz Undiagnosed new problem with uncertain prognosis? @ -No Drug Therapy requiring intensive monitoring for toxicity (Heparin, Nitro, Insulin, Cardizem)? @ -No Were any procedures done? @ -No Diagnosis/symptom? @ -abdominal pain Acute, or Chronic, or Acute on Chronic? @ -acute Uncomplicated (without systemic symptoms) or Complicated (systemic symptoms)? @ -uncomplicated Side effects of treatment? @ -No Exacerbation, Progression, or Severe Exacerbation? @ -No Poses a threat to life or bodily function? How? (Chest pain, [place], PR, pneumonia, PE, COPD, DKA, ARF, appy, cholecystitis, CVA, Diverticulitis, Homicidal, Suicidal, threat to staff... and all critical care pts) @ -No - Lab Data Result diagrams: 03/23/23 19:21 03/23/23 19:21 Lab Results 03/23/23 03/23/23 03/23/23 Range/Units 19:15 19:21 19:21 WBC 7.4 (3.8-10.6) k/uL RBC 4.37 (3.80-5.40) m/uL Hgb 12.9 (11.4-16.0) gm/dL Hct 38.2 (34.0-46.0) % MCV 87.4 (80.0-100.0) fL MCH 29.6 (25.0-35.0) pg MCHC 33.8 (31.0-37.0) g/dL RDW 13.0 (11.5-15.5) % Plt Count 271 (150-450) k/uL MPV 7.4 Neutrophils % 58 % Lymphocytes % 32 % Monocytes % 7 % Eosinophils % 1 % Basophils % 1 % Neutrophils # 4.3 (1.3-7.7) k/uL Lymphocytes # 2.3 (1.0-4.8) k/uL Monocytes # 0.5 (0-1.0) k/uL Eosinophils # 0.1 (0-0.7) k/uL Basophils # 0.0 (0-0.2) k/uL Sodium 136 L (137-145) mmol/L Potassium 3.8 (3.5-5.1) mmol/L Chloride 106 (98-107) mmol/L Carbon Dioxide 25 (22-30) mmol/L Anion Gap 5 mmol/L BUN 9 (7-17) mg/dL Creatinine 0.72 (0.52-1.04) mg/dL Est GFR (CKD-EPI)AfAm >90 (>60 ml/min/1.73 sqM) Est GFR (CKD-EPI)NonAf >90 (>60 ml/min/1.73 sqM) Glucose 75 (74-99) mg/dL Calcium 8.5 (8.4-10.2) mg/dL Total Bilirubin 0.3 (0.2-1.3) mg/dL AST 35 (14-36) U/L ALT 42 H (4-34) U/L Alkaline Phosphatase 68 (38-126) U/L Total Protein 6.0 L (6.3-8.2) g/dL Albumin 3.5 (3.5-5.0) g/dL Amylase 46 (30-110) U/L Lipase 438 H (23-300) U/L Urine Color Light Yellow Urine Appearance Cloudy H (Clear) Urine pH 6.0 (5.0-8.0) Ur Specific [place] 1.008 (1.001-1.035) Urine Protein Negative (Negative) Urine Glucose (UA) Negative (Negative) Urine Ketones Negative (Negative) Urine Blood Negative (Negative) Urine Nitrite Negative (Negative) Urine Bilirubin Negative (Negative) Urine Urobilinogen <2.0 (<2.0) mg/dL Ur Leukocyte Esterase Negative (Negative) Urine RBC <1 (0-5) /hpf Urine WBC 2 (0-5) /hpf Ur Squamous Epith Cells 8 H (0-4) /hpf Hyaline Casts 1 (0-2) /lpf Urine Mucus Occasional H (None) /hpf Disposition Clinical Impression: Abdominal pain Disposition: HOME SELF-CARE Condition: Stable Instructions (If sedation given, give patient instructions): Acute Low Back Pain (ED), Abdominal Pain (ED) Additional Instructions: Please return to the emergency department for new or worsening symptoms. Is patient prescribed a controlled substance at d/c from ED?: No Referrals: Heather Vidales [Primary Care Provider] - 1-2 days Time of Disposition: 21:53
[2023-03-23 22:12] VITALS: BP 140/69; PULSE 70; RESP 18
== END 2023-03-23 22:12 | disposition home or self-care (01) ==
LOC: EC 18:05
DX: R10.9 Unspecified abdominal pain (principal); J45.909 Unspecified asthma, uncomplicated; I25.2 Old myocardial infarction; F32.A Depression, unspecified; Z87.891 Personal history of nicotine dependence; Z91.018 Allergy to other foods; Z88.5 Allergy status to narcotic agent; Z88.8 Allergy status to other drugs, medicaments and biological substances; Z79.899 Other long term (current) drug therapy
CPT/HCPCS: 36415; 80053; 81001; 82150; 83690; 85025; 99284